=== PATIENT | female | born 1935 | race Caucasian/White ===

== ENCOUNTER 2022-07-23 16:12 | Inpatient (IN) | payer MEDICARE, OTHER ==
[~2022-07-23] VITALS: Ht 167.6 cm; Wt 61.2 kg
--- NOTE | 2022-07-23 16:35 | NUR ---
BETO HOOK "From [facility] COVID positive, Hypoxemia/weak. PLACED ON BED, AWAKE-ALERT, TACHYPNEIC RR- 30, SATURATING AT 85% ON 15LIT O2 NRM. IRRIGATION SERVICE TECHNICIAN AT BEDSIDE SUCTION SECRETION DONE SATURATING AT 96% WITH 6LIT O2 VIA NC.
--- NOTE | 2022-07-23 16:45 | NUR ---
BLOOD DRAWN AND SENT TO LAB
[2022-07-23 17:00] LABS: BASOPHILS % (AUTO) 0.1 % (0.0-2.0); HEMATOCRIT 39 % (33-45); HEMOGLOBIN 12.5 g/dL (11.5-14.8); LYMPHOCYTES # (AUTO) 0.3 K/uL (0.8-4.8); LYMPHOCYTES % (AUTO) 1.9 % (20.0-44.0); MEAN CORPUSCULAR HGB CONC 33 g/dl (31.0-36.0); MEAN CORPUSCULAR VOLUME 89 fL (82-100); MONOCYTES # (AUTO) 1.6 K/uL (0.1-1.30); MONOCYTES % (AUTO) 10.8 % (2.0-12.0); NEUTROPHILS # (AUTO) 12.7 K/uL (1.8-8.9); NEUTROPHILS % (AUTO) 87.2 % (43.0-81.0); PLATELET COUNT (AUTO) 181 K/uL (150-450); RED BLOOD CELL COUNT(AUTO) 4.35 MIL/uL (4.0-5.2); WHITE BLOOD COUNT (AUTO) 14.5 K/uL (4.3-11.0)
[2022-07-23] MEDS ORDERED: IV NS 0.9% 1,000 ML BAG IV ONE (17:00)
[2022-07-23] MEDS ORDERED: ACETAMINOPHEN 650 MG/SUPP.RECT RC ONE ×2 (17:00→17:19)
[2022-07-23 17:17] LABS: CALCIUM, SERUM 6.8 mg/dL (8.5-10.1); CARBON DIOXIDE 27 mmol/L (21-32); CHLORIDE 108 mmol/L (98-107); CREATININE 0.8 mg/dL (0.6-1.3); GLUCOSE 188 mg/dL (74-106); POTASSIUM 3.5 mmol/L (3.5-5.1); SODIUM SERUM 143 mmol/L (136-145); UREA NITROGEN, BLOOD 14 mg/dL (7-18)
[2022-07-23 17:23] LABS: ALANINE AMINOTRANSFERASE 13 U/L (12-78); ALBUMIN 2.5 g/dL (3.4-5.0); ALKALINE PHOSPHATASE 59 U/L (46-116); ASPARTATE AMINOTRANSFERASE 11 U/L (15-37); BILIRUBIN,DIRECT 0.2 mg/dL (0.0-0.2); BILIRUBIN,TOTAL 0.3 mg/dL (0.2-1.0); TOTAL PROTEIN, SERUM 6.4 g/dL (6.4-8.2)
[2022-07-23] MEDS ORDERED: DOCU250C14 PO (17:47)
[2022-07-23] MEDS ORDERED: NA P133E RC (17:47)
[2022-07-23] MEDS ORDERED: CALC1TAB30 PO (17:47)
[2022-07-23] MEDS ORDERED: MAGN400O6 PO (17:47)
[2022-07-23] MEDS ORDERED: ALEN70TA3 PO (17:47)
[2022-07-23] MEDS ORDERED: MULT-447 PO (17:47)
[2022-07-23] MEDS ORDERED: [UNRECOGNIZED DRUG - CODE] EACH EAR (17:47)
[2022-07-23] MEDS ORDERED: POLY15DR40 EACHEYE (17:47)
[2022-07-23] MEDS ORDERED: ASPI-1169 PO (17:47)
[2022-07-23] MEDS ORDERED: ALBU0.633 IH (17:47)
[2022-07-23] MEDS ORDERED: DONE10TA44 PO (17:47)
[2022-07-23] MEDS ORDERED: ASCO-352 PO (17:48)
[2022-07-23] MEDS ORDERED: ZINC1CAP3 PO (17:48)
[2022-07-23] MEDS ORDERED: ACET-868 PO ×2 (17:48)
[2022-07-23] MEDS ORDERED: AMIN30LI2 PO (17:48)
[2022-07-23] MEDS ORDERED: CYAN100096 PO (17:48)
[2022-07-23] MEDS ORDERED: PRAV40TA3 PO (17:48)
[2022-07-23] MEDS ORDERED: ACET-2605 PO (17:48)
[2022-07-23] MEDS ORDERED: LEVO50TA8 PO (17:48)
--- NOTE | 2022-07-23 18:14 | NUR ---
SWAB FOR COVID19 SENT TO LAB
--- NOTE | 2022-07-23 18:20 | NUR ---
URINE SAMPLE SENT TO LAB
[2022-07-23 19:05] LABS: BILIRUBIN,URINE NEGATIVE (NEGATIVE); COLOR,URINE YELLOW (YELLOW); LEUKOCYTE ESTERASE ,URINE NEGATIVE (NEGATIVE); NITRITE, URINE POSITIVE (NEGATIVE); PH,URINE 5.5 (5.0-8.0); PROTEIN,URINE 2+ mg/dl (NEGATIVE); UGLUCOSE 1+ mg/dL (NEGATIVE)
[2022-07-23 19:55] LABS: BACTERIA,URINE 3+ /HPF (None Seen); RBC,URINE 51-80 /HPF (0-2); SQUAMOUS EPITHELIAL CELL,UR Moderate /HPF (None Seen)
[2022-07-23 20:00] VITALS: BP 126/64
[2022-07-23] MEDS ORDERED: ONDANSETRON HCL/PF 4 MG/2 ML VIAL IVP PRN (20:30)
[2022-07-23] MEDS ORDERED: ACETAMINOPHEN 325 MG TABLET PO PRN (20:30)
[2022-07-23] MEDS ORDERED: MAGNESIUM HYDROXIDE 30 ML UDC PO PRN (20:30)
[2022-07-23] MEDS ORDERED: CEFTRIAXONE 1GM BAG (ER ONLY) 1 GM/50 ML PIGGYBACK IV ONE (20:30)
[2022-07-23] MEDS ORDERED: Z GUARD REMEDY 4 OZ OINT TP PRN (20:30)
[2022-07-23] MEDS ORDERED: MORPHINE SULFATE INJ 2 MG/ML DISP.SYRIN IV PRN (20:30)
[2022-07-23] MEDS ORDERED: ALBUTEROL FS 2.5 MG/0.5 ML VIAL.NEB NEB PRN (20:30)
[2022-07-23] MEDS ORDERED: DEXAMETHASONE SOD PHOSPHATE 10 MG/ML VIAL IV ONE (20:30)
--- NOTE | 2022-07-23 20:38 | NUR ---
REPORT GIVEN TO PRICESS RN ROOM 104 FOR PETER
[2022-07-23] MEDS ORDERED: CEFEPIME 2 GM in IV D5W 100 ML IV ONE (21:00)
[2022-07-23] MEDS: POLYVINYL ALCOHOL 15 ML BOTTLE EACHEYE SCH (21:00)
--- NOTE | 2022-07-23 21:43 | NUR ---
RN INITIAL NOTE PT ARRIVED TO UNIT VIA GURNEY. PT IS A&O X0, NON-VERBAL; UNABLE TO OBTAIN PERTINENT HISTORY. PT IS ON SIMPLE FACE MASK AT 10L WITH CURRENT O2SAT OF 100%; NOTED TO HAVE PRODUCTIVE COUGH, SOB, AND IS NOTED TO BE TACHYPNEIC WITH RESPIRATIONS OF 36; SECRETION IS BROWNISH WHITE IN COLOR WITH THIN CONSISTENCY; PT SUCTIONED APPROPRIATELY. PT ATTACHED TO EXTERNAL MONITOR, SR WITH HR OF 85. LFA 20G INTACT AND PATENT, FLUSHES EASILY WITH NO RESISTANCE. PT IS VACCINATED AGAINST COVID WITH MODERNA X3 DOSES AND THE FLU VACCINE, RECEIVED MAY 2022. BED IN LOWEST POSITION, CALL LIGHT WITHIN REACH, SIDE RAILS UP X3. WILL INITIATE PLAN OF CARE.
[2022-07-23] MEDS: ATORVASTATIN 10 MG TABLET PO SCH (22:00)
--- NOTE | 2022-07-23 22:58 | NUR ---
RN NOTE CRITICAL CAME FROM LAB, TROPONIN 257. NOTIFIED RUSLAN; ORDER PLACED FOR ECHOCARDIOGRAM.
[2022-07-23] MEDS: IV NS 0.9% 1,000 ML IV SCH (22:59)
[2022-07-23] MEDS: HEPARIN SODIUM, PORCINE 5000 UNITS/1 ML VIAL SQ SCH (23:03)
[2022-07-23] MEDS ORDERED: CEFEPIME 1 GM VIAL ONE (23:12)
--- NOTE | 2022-07-23 23:39 | NUR ---
RN NOTE POLYVINYL ALCOHOL SCHEDULED FOR 2100 NOT ADMINISTERED MED IS NOT AVAILABLE. WILL FOLLOW UP WITH PHARMACY IN AM.
[2022-07-24] VITALS: BP 157/85
[2022-07-24] MEDS: IPRATROPIUM/ALBUTEROL INHALER IH SCH ×2 (01:30→22:08)
[2022-07-24 04:00] VITALS: BP 130/88
[2022-07-24 05:51] LABS: ABG BASE EXCESS 1.2 mmol/L; ABG OXYGEN SATURATION 94.9 % (92.0-98.5); ABG PCO2 42.5 mmHg (35.0-45.0); ABG PH 7.406 (7.350-7.450); ABG PO2 75.6 mmHg (75.0-100.0); AaDO2 363.3 mmHg; COHb 0.6 % (0.5-1.5); MetHb 0.1 % (0.0-1.5); O2Hb 94.2 % (94.0-97.0); SITE, ABG Right Radial; VENT MODE, BG 12L SMIPLE MASK
--- NOTE | 2022-07-24 06:41 | NUR ---
HEAD OPERATOR SULFIDE CLOSING NOTE PT REMAINS IN BED, AWAKE, A&O X0, NON-VERBAL; NO CHANGES TO NEURO STATUS. PT REMAINS ON SIMPLE FACE MASK AT 10L WITH O2SAT RANGING FROM 98%-100%; CONTINUES TO HAVE PRODUCTIVE COUGH, SOB, AND TACHYPNEIC; AND AUDIBLE CRACKLES. ATTACHED TO EXTERNAL MONITOR, SR WITH HR RANGING FROM 82- 86. LFA 20G INTACT AND PATENT, FLUSHES EASILY WITH NO RESISTANCE; NS INFUSING AT 75 ML/HR. BED IN LOWEST POSITION, CALL LIGHT WITHIN REACH, SIDE RAILS UP X3. ALL DUE MEDS ADMINISTERED DURING THE NIGHT. WILL ENDORSE TO DAYSHIFT NURSE TO CONTINUE CARE.
[2022-07-24 07:16] LABS: BASOPHILS % (AUTO) 0.1 % (0.0-2.0); HEMATOCRIT 39 % (33-45); HEMOGLOBIN 12.9 g/dL (11.5-14.8); LYMPHOCYTES # (AUTO) 0.7 K/uL (0.8-4.8); LYMPHOCYTES % (AUTO) 6.7 % (20.0-44.0); MEAN CORPUSCULAR HGB CONC 33 g/dl (31.0-36.0); MEAN CORPUSCULAR VOLUME 89 fL (82-100); MONOCYTES # (AUTO) 1.2 K/uL (0.1-1.30); MONOCYTES % (AUTO) 11.4 % (2.0-12.0); NEUTROPHILS # (AUTO) 8.8 K/uL (1.8-8.9); NEUTROPHILS % (AUTO) 81.8 % (43.0-81.0); PLATELET COUNT (AUTO) 187 K/uL (150-450); RED BLOOD CELL COUNT(AUTO) 4.42 MIL/uL (4.0-5.2); WHITE BLOOD COUNT (AUTO) 10.7 K/uL (4.3-11.0)
[2022-07-24] MEDS: LEVOTHYROXINE SODIUM 50 MCG TABLET PO SCH (07:20)
--- NOTE | 2022-07-24 07:24 | NUR ---
RN OPEN NOTE PATIENT IS IN BED WITH SIMPLE MASK 10 L OF POXYGEN , SAT 98 % , PATIENT IS CONFUSED AND NON VERBAL , ON TELE MONITORING SR 87. PATIENT IS BED BOUND , HAS ULCER ON RIGHT MEDIAL ANKLE AND RIGHT CHAN SKIN TEAR , WOUND CONSULT PENDING .PATIENT HAS BILATERAL HANDS SOFT RESTRAINED DUE TO WAS TRYING TO REMOVE IV LINE , PATIENT IS NPO DUE TO HIGH RISK OF ASPIRATION , DIETARY CONSULT IS PENDING .PATIENT HAS IV ACCESS OF LFA 20 G WITH NS RUNNING AT 75 ML/HR . WILL MATTY NUE TO MONITOR AND FALLOW POC
[2022-07-24 07:27] LABS: CALCIUM, SERUM 8.1 mg/dL (8.5-10.1); CREATININE 0.8 mg/dL (0.6-1.3); POTASSIUM 3.6 mmol/L (3.5-5.1)
[2022-07-24 07:33] LABS: ALBUMIN 2.8 g/dL (3.4-5.0); BILIRUBIN,TOTAL 0.5 mg/dL (0.2-1.0); MAGNESIUM 2.1 mg/dL (1.8-2.4); PHOSPHORUS 2.3 mg/dL (2.5-4.9); TOTAL PROTEIN, SERUM 7.1 g/dL (6.4-8.2)
[2022-07-24 08:00] VITALS: BP 131/82
--- NOTE | 2022-07-24 08:20 | NUR ---
WOUND CARE CONSULT: REVIEWED CHART, NURSING DOCUMENTATION AND PHOTO WHICH INDICATES RT ANKLE ULCER, PRESENT ON ADMISSION. DR LOPEZ NOTIFIED OF DPM CONSULT. DISCUSSED SKIN PROTECTION WITH NURSING STAFF. MD IN AGREEMENT WITH PLAN OF CARE.
[2022-07-24] MEDS: DEXAMETHASONE SOD PHOSPHATE 4 MG/ML VIAL IV SCH (08:34)
[2022-07-24] MEDS: HEPARIN SODIUM, PORCINE 5000 UNITS/1 ML VIAL SQ SCH ×2 (08:39→22:14)
[2022-07-24] MEDS: ASPIRIN 81 MG TAB.CHEW PO SCH (08:56)
[2022-07-24] MEDS: CALCIUM CARB 250MG /VITAMIN D 1 UDTAB PO SCH (08:56)
[2022-07-24] MEDS: PROSOURCE / PROSTAT (PYXIS) 30 ML UDC PO SCH (08:57)
[2022-07-24] MEDS: CYANOCOBALAMIN 500 MCG TABLET PO SCH (08:57)
[2022-07-24] MEDS: ZINC SULFATE 220 MG CAPSULE PO SCH (08:57)
[2022-07-24] MEDS: ASCORBIC ACID 500 MG TABLET PO SCH (08:57)
[2022-07-24] MEDS: MULTIVITAMINS,THERAGRAN 1 UDTAB TABLET PO SCH (08:57)
[2022-07-24] MEDS ORDERED: [UNRECOGNIZED DRUG - MIXTURE] EACH EAR SCH (09:00)
[2022-07-24] MEDS ORDERED: OLANZAPINE 10 MG VIAL IM ONE (09:00)
[2022-07-24] MEDS ORDERED: DEXAMETHASONE SOD PHOSPHATE 6 MG in IV D5W 50 ML IV SCH (09:00)
[2022-07-24] MEDS ORDERED: ACETAMINOPHEN SUP SA PATIENTS 650 MG SUPP RC PRN (10:00)
[2022-07-24] MEDS: IV NS 0.9% 1,000 ML IV SCH (10:21)
[2022-07-24] MEDS: POLYVINYL ALCOHOL 15 ML BOTTLE EACHEYE SCH ×4 (10:22→21:00)
[2022-07-24] MEDS ORDERED: NEUTRA PHOS 1 POWD.PACKET NG ONE (12:00)
[2022-07-24 12:16] VITALS: BP 119/60
[2022-07-24] MEDS ORDERED: Sodium Phosphate 15 MMOL in IV NS 0.9% 245 ML IV SCH (13:00)
[2022-07-24 15:39] LABS: ABG OXYGEN SATURATION 94.9 % (92.0-98.5); ABG PCO2 39.4 mmHg (35.0-45.0); ABG PH 7.441 (7.350-7.450); ABG PO2 73.6 mmHg (75.0-100.0); AaDO2 238.6 mmHg; COHb 0.2 % (0.5-1.5); MetHb 0.3 % (0.0-1.5); O2Hb 94.4 % (94.0-97.0); SITE, ABG Right Radial; VENT MODE, BG 10 L SM
[2022-07-24] MEDS ORDERED: REMDESIVIR (CHARGED) 200 MG, *LOADING DOSE 1 EA in IV NS 0.9% 210 ML IV ONE (16:00)
[2022-07-24 16:14] VITALS: BP 118/85
[2022-07-24] MEDS: DONEPEZIL 5 MG TABLET PO SCH (17:13)
[2022-07-24] MEDS: DOCUSATE SODIUM 250 MG CAPSULE PO SCH (17:13)
[2022-07-24] MEDS ORDERED: IV D5/0.45 NACL 1,000 ML IV ONE (18:00)
--- NOTE | 2022-07-24 18:30 | NUR ---
CLERK MANAGER CLOSING NOTE PT REMAINS IN BED, SLEEPING A&O X0, NON-VERBAL; NO CHANGES TO NEURO STATUS. PT REMAINS ON SIMPLE FACE MASK AT 10L WITH O2SAT RANGING FROM 98%-100%; CONTINUES TO HAVE PRODUCTIVE COUGH, SOB, AND TACHYPNEIC; AND AUDIBLE CRACKLES. ATTACHED TO EXTERNAL MONITOR, SR WITH HR RANGING FROM 82- 86. LFA 20G INTACT AND PATENT, FLUSHES EASILY WITH NO RESISTANCE; D5 1/2 NS INFUSING AT 75 ML/HR. BED IN LOWEST POSITION, CALL LIGHT WITHIN REACH, SIDE RAILS UP X3. NO ORAL MED WAS ADMINISTERD DUE TO PATIENT IS UNABLE TO SWALLOW , DOCTOR AMBER AND DR LOTT NOTIFIED . WILL ENDORSE TO CNC OPERATOR PROGRAMMER NURSE TO CONTINUE TO FALLOW POC
[2022-07-24 20:00] VITALS: BP 109/57
[2022-07-24] MEDS ORDERED: CEFEPIME 2 GM in IV D5W 100 ML IV SCH (20:00)
--- NOTE | 2022-07-24 21:01 | NUR ---
OIL FIELD PUMPER OPENING NOTE PT RECEIVED IN BED, A&O X0, NON-VERBAL, OPENS EYES. PT ON SIMPLE FACE MASK AT 10L WITH CURRENT O2SAT OF 97%; NOTED TO HAVE PRODUCTIVE COUGH; NO OTHER S/S OF RESP DISTRESS, NON-LABORED AND EQUAL BREATHING. PT ATTACHED TO EXTERNAL MONITOR, SB WITH CURRENT HR OF 55. LFA 20G INTACT AND PATENT, FLUSHES EASILY WITH NO RESISTANCE; D51/2NS INFUSING AT 75 ML/HR. PT NOTED TO HAVE BILATERAL SOFT WRIST RESTRAINTS; NO SIGNS OF IMPAIRED SKIN OR CIRCULATION; WILL PROVIDE PT WITH RELEASE OF RESTRAINTS, HYGIENE. BED IN LOWEST POSITION, CALL LIGHT WITHIN REACH, SIDE RAILS UP X3. WILL CONTINUE TO MONITOR THROUGHOUT THE NIGHT.
--- NOTE | 2022-07-24 21:08 | NUR ---
RN NOTE CRITICAL CALLED FROM LAB, TROPONIN 224, NOTED TO BE TRENDING DOWN FROM 257 DRAWN ON 07/23
[2022-07-24] MEDS: ATORVASTATIN 10 MG TABLET PO SCH (22:00)
[2022-07-24] MEDS: CEFEPIME 2 GM in IV D5W 100 ML IV SCH (22:07)
--- NOTE | 2022-07-24 22:32 | NUR ---
RN NOTE ATORVASTATIN 10 MG SCHEDULED FOR 2200 NON-ADMINISTERED D/T NPO STATUS SECONDARY TO AMS.
[2022-07-25] VITALS: BP 137/90
[2022-07-25] MEDS: IPRATROPIUM/ALBUTEROL INHALER IH SCH ×2 (01:36→19:30)
[2022-07-25 04:00] VITALS: BP 111/59
--- NOTE | 2022-07-25 06:48 | NUR ---
PUMPER GAUGER CLOSING NOTE PT REMAINS IN BED, A&O X0, NON-VERBAL, OPENS EYES. CONTINUES TO BE ON SIMPLE FACE MASK AT 10L WITH O2SAT RANGING FROM 97%-98% THROUGHOUT THE NIGHT; PRODUCTIVE COUGH WITH MODERATE SECRETIONS, PT SUCTIONED APPROPRIATELY; NO OTHER S/S OF RESP DISTRESS, NON-LABORED AND EQUAL BREATHING. PT ATTACHED TO EXTERNAL MONITOR, SB-SR WITH HR RANGING FROM 55-67. LFA 20G INTACT AND PATENT, FLUSHES EASILY WITH NO RESISTANCE; D51/2NS INFUSING AT 75 ML/HR. BILATERAL SOFT WRIST RESTRAINTS REMAIN IN PLACE WITH NO SIGNS OF IMPAIRED SKIN OR CIRCULATION; PROVIDED PT WITH RELEASE OF RESTRAINTS, HYGIENE. ALL DUE MEDS ADMINISTERED DURING THE NIGHT. BED IN LOWEST POSITION, CALL LIGHT WITHIN REACH, SIDE RAILS UP X3. WILL ENDORSE TO DAYSHIFT NURSE TO CONTINUE CARE.
[2022-07-25] MEDS: LEVOTHYROXINE SODIUM 50 MCG TABLET PO SCH (07:00)
[2022-07-25 07:04] LABS: HEMATOCRIT 38 % (33-45); HEMOGLOBIN 12.3 g/dL (11.5-14.8); LYMPHOCYTES # (AUTO) 0.7 K/uL (0.8-4.8); LYMPHOCYTES % (AUTO) 6.3 % (20.0-44.0); MEAN CORPUSCULAR HGB CONC 33 g/dl (31.0-36.0); MEAN CORPUSCULAR VOLUME 88 fL (82-100); MONOCYTES % (AUTO) 8.4 % (2.0-12.0); NEUTROPHILS # (AUTO) 9.9 K/uL (1.8-8.9); NEUTROPHILS % (AUTO) 85.3 % (43.0-81.0); PLATELET COUNT (AUTO) 188 K/uL (150-450); RED BLOOD CELL COUNT(AUTO) 4.27 MIL/uL (4.0-5.2); WHITE BLOOD COUNT (AUTO) 11.6 K/uL (4.3-11.0)
--- NOTE | 2022-07-25 07:05 | NUR ---
FLOOR SPACE ALLOCATOR OPENING NOTE: RECEIVED PT. IN BED, LETHARGIC, OPENS EYES TO TACTILE AND PAINFUL STIMULI, NON-VERBAL, NO S/S OF PAIN/DISCOMFORT NOTED. ON O2 VIA SIMPLE FACE MASK AT 10 L/MIN, SATURATING 98% AT THIS TIME. LENDING CONSULTANT READS NSR/SINUS KATLIN AT THIS TIME. ON DIAPER VOIDING YELLOW URINE. MULTIPLE SKIN ISSUES NOTED, WILL DO WOUND TREATMENT ORDERED. ON BILATERAL SOFT WRIST RESTRAINTS, PALPABLE PULSES NOTED AND < 3 SECS CAP REFILL NOTED ON ALL EXTREMITIES. PT. REMAINS NPO FOR RISK FOR ASPIRATION. IV ACCESS ON L FOREARM #20G, WITH D5 1/2 NS RUNNING AT 75 ML/HR. IV DRESSING C/D/I WITH NO S/S OF INFILTRATION NOTED. SAFETY MEASURES IN PLACE: BED IN LOWEST AND LOCKED POSITION, HOB ELEVATED AT 30 DEGREES, BED ALARM ON, CALL LIGHT WITHIN REACH. WILL TURN AND REPOSITION IN BED AT LEAST Q2H. WILL CONTINUE TO MONITOR FOR ANY CHANGES.
[2022-07-25 07:23] LABS: ALANINE AMINOTRANSFERASE 14 U/L (12-78); ALBUMIN 2.4 g/dL (3.4-5.0); ALKALINE PHOSPHATASE 53 U/L (46-116); BILIRUBIN,DIRECT 0.2 mg/dL (0.0-0.2); BILIRUBIN,TOTAL 0.3 mg/dL (0.2-1.0); CARBON DIOXIDE 30 mmol/L (21-32); CHLORIDE 110 mmol/L (98-107); CREATININE 0.8 mg/dL (0.6-1.3); GLUCOSE 122 mg/dL (74-106); PHOSPHORUS 2.2 mg/dL (2.5-4.9); POTASSIUM 3.8 mmol/L (3.5-5.1); SODIUM SERUM 144 mmol/L (136-145); TOTAL PROTEIN, SERUM 6.7 g/dL (6.4-8.2); UREA NITROGEN, BLOOD 22 mg/dL (7-18)
[2022-07-25 07:56] LABS: ASPARTATE AMINOTRANSFERASE 17 U/L (15-37)
[2022-07-25 08:00] VITALS: BP 122/63
[2022-07-25] MEDS: ZINC SULFATE 220 MG CAPSULE PO SCH (09:00)
[2022-07-25] MEDS: PROSOURCE / PROSTAT (PYXIS) 30 ML UDC PO SCH (09:00)
[2022-07-25] MEDS: CYANOCOBALAMIN 500 MCG TABLET PO SCH (09:00)
[2022-07-25] MEDS: CALCIUM CARB 250MG /VITAMIN D 1 UDTAB PO SCH (09:00)
[2022-07-25] MEDS: ASCORBIC ACID 500 MG TABLET PO SCH (09:00)
[2022-07-25] MEDS: MULTIVITAMINS,THERAGRAN 1 UDTAB TABLET PO SCH (09:00)
[2022-07-25] MEDS: ASPIRIN 81 MG TAB.CHEW PO SCH (09:00)
[2022-07-25] MEDS: DAKINS HALF STRENGTH (0.25%) 480 ML BOTTLE TOP SCH (09:47)
[2022-07-25] MEDS: DEXAMETHASONE SOD PHOSPHATE 4 MG/ML VIAL IV SCH (10:17)
[2022-07-25] MEDS: POLYVINYL ALCOHOL 15 ML BOTTLE EACHEYE SCH ×4 (10:17→21:00)
[2022-07-25] MEDS: CEFEPIME 2 GM in IV D5W 100 ML IV SCH ×2 (10:18→22:27)
[2022-07-25] MEDS: HEPARIN SODIUM, PORCINE 5000 UNITS/1 ML VIAL SQ SCH ×2 (10:24→22:32)
[2022-07-25] MEDS ORDERED: NEUTRA PHOS 1 POWD.PACKET PO ONE (11:00)
[2022-07-25] MEDS ORDERED: Sodium Phosphate 15 MMOL in IV NS 0.9% 245 ML IV SCH (15:00)
[2022-07-25] MEDS: REMDESIVIR (CHARGED) 100 MG in IV NS 0.9% 100 ML IV SCH (15:26)
[2022-07-25 16:00] VITALS: BP 121/64
[2022-07-25] MEDS: DOCUSATE SODIUM 250 MG CAPSULE PO SCH (18:00)
[2022-07-25] MEDS: DONEPEZIL 5 MG TABLET PO SCH (18:00)
[2022-07-25] MEDS ORDERED: JEVITY 1.2 CAL 1,000 ML BOTTLE GT PRN (19:00)
--- NOTE | 2022-07-25 19:05 | NUR ---
MS RN CLOSING NOTE: PT. REMAINS IN BED, LETHARGIC, OPENS EYES TO TACTILE AND PAINFUL STIMULI, NON-VERBAL, NO S/S OF PAIN/DISCOMFORT NOTED. ON O2 VIA SIMPLE FACE MASK AT 10 L/MIN, SATURATING 98% AT THIS TIME. ON DIAPER VOIDED 2X YELLOW URINE. WOUND TREATMENT LILY ORDERED. ON BILATERAL SOFT WRIST RESTRAINTS, PALPABLE PULSES NOTED AND < 3 SECS CAP REFILL NOTED ON ALL EXTREMITIES. NG TUBE INSERTED, CONFIRMED PLACEMENT WITH XRAY. IV ACCESS ON NARGIS MIDLINE #18G, WITH D5 1/2 NS RUNNING AT 75 ML/HR. IV DRESSING C/D/I WITH NO S/S OF INFILTRATION NOTED. SAFETY MEASURES IN PLACE: BED IN LOWEST AND LOCKED POSITION, HOB ELEVATED AT 30 DEGREES, BED ALARM ON, CALL LIGHT WITHIN REACH. WILL TURN AND REPOSITION IN BED AT LEAST Q2H. WILL CONTINUE TO MONITOR FOR ANY CHANGES. Addendum: 07/25/22 at 1942 by FRANCO WELDON RN PLS DISREGARD THIS NOTE.
--- NOTE | 2022-07-25 19:06 | NUR ---
CORRECT: MS RN CLOSING NOTE: PT. REMAINS IN BED, LETHARGIC, OPENS EYES TO TACTILE AND PAINFUL STIMULI, NON-VERBAL, NO S/S OF PAIN/DISCOMFORT NOTED. ON O2 VIA SIMPLE FACE MASK AT 10 L/MIN, SATURATING 98% AT THIS TIME. ON DIAPER VOIDED 2X YELLOW URINE THIS SHIFT. WOUND TREATMENT DONE ORDERED. ON BILATERAL SOFT WRIST RESTRAINTS, PALPABLE PULSES NOTED AND < 3 SECS CAP REFILL NOTED ON ALL EXTREMITIES. NG TUBE INSERTED, CONFIRMED PLACEMENT WITH XRAY. IV ACCESS ON NARGIS MIDLINE #18G, PATENT AND SALINE LOCKED. IV DRESSING C/D/I WITH NO S/S OF INFILTRATION NOTED. SAFETY MEASURES MAINTAINED: BED IN LOWEST AND LOCKED POSITION, HOB ELEVATED AT 30 DEGREES, BED ALARM ON, CALL LIGHT WITHIN REACH. TURNED AND REPOSITIONED PT. IN BED AT LEAST Q2H. ENDORSED CONTINUITY OF CARE TO CASINO BANKER RN.
[2022-07-25 20:00] VITALS: BP 105/44
[2022-07-25] MEDS: ATORVASTATIN 10 MG TABLET PO SCH (22:28)
--- NOTE | 2022-07-25 23:57 | NUR ---
MS RN OPENING NOTE PT RECEIVED IN BED, A&O X0, NON-VERBAL, OPENS EYES. PT ON SIMPLE FACE MASK AT 12L WITH CURRENT O2SAT OF 98%; NO S/S OF RESP DISTRESS, NON-LABORED AND EQUAL BREATHING, NO SOB; NOTED TO HAVE PRODUCTIVE COUGH. VSS, WILL CONTINUE TO MONITOR THROUGHOUT THE NIGHT NEEDED. NARGIS MIDLINE 18G INTACT AND PATENT, FLUSHES EASILY WITH NO RESISTANCE; NO MEDS/FLUIDS INFUSING THROUGH IT. PT NOTED TO HAVE BILATERAL SOFT WRIST RESTRAINTS; NO SIGNS OF IMPAIRED SKIN OR CIRCULATION; WILL PROVIDE PT WITH RELEASE OF RESTRAINTS, HYGIENE. NGT NOTED TO BE ON RIGHT NARE AT 65 CM; POSITIVE PLACEMENT CONFIRMED WITH AUSCULTATION AND CHEST X-RAY. JEVITY STARTED AT 20 ML/HR; WILL MONITOR FOR TOLERATION. BED IN LOWEST POSITION, CALL LIGHT WITHIN REACH, SIDE RAILS UP X3. WILL CONTINUE TO MONITOR THROUGHOUT THE NIGHT.
[2022-07-26] MEDS: IPRATROPIUM/ALBUTEROL INHALER IH SCH ×4 (01:30→21:26)
[2022-07-26 04:00] VITALS: BP 140/78
--- NOTE | 2022-07-26 06:10 | NUR ---
MS RN CLOSING NOTE PT REMAINS IN BED, A&O X0, NON-VERBAL, OPENS EYES; NO CHANGES TO NEURO STATUS. CONTINUES TO BE ON SIMPLE FACE MASK AT 12L WITH O2SAT STABLE AT 98%; NO S/S OF RESP DISTRESS, NON-LABORED AND EQUAL BREATHING, NO SOB; CONTINUES TO HAVE PRODUCTIVE COUGH; PT SUCTIONED APPROPRIATELY. VSS THROUGHOUT THE NIGHT WITH NO SIGNIFICANT CHANGES. NARGIS MIDLINE 18G INTACT AND PATENT, FLUSHES EASILY WITH NO RESISTANCE; NO MEDS/FLUIDS INFUSING THROUGH IT. BILATERAL SOFT WRIST RESTRAINTS REMAIN IN PLACE; NO SIGNS OF IMPAIRED SKIN OR CIRCULATION; PROVIDED PT WITH RELEASE OF RESTRAINTS, HYGIENE. NGT REMAINS IN PLACE ON RIGHT NARE AT 65 CM; POSITIVE PLACEMENT CONFIRMED WITH AUSCULTATION AND CHEST X-RAY. JEVITY INFUSING AT 20 ML/HR; PT TOLERATING GTF WELL. ALL DUE MEDS ADMINISTERED DURING THE NIGHT. BED IN LOWEST POSITION, CALL LIGHT WITHIN REACH, SIDE RAILS UP X3. WILL ENDORSE TO DAYSHIFT NURSE TO CONTINUE CARE.
[2022-07-26 07:17] LABS: BASOPHILS % (AUTO) 0.1 % (0.0-2.0); HEMATOCRIT 34 % (33-45); HEMOGLOBIN 11.3 g/dL (11.5-14.8); LYMPHOCYTES # (AUTO) 0.6 K/uL (0.8-4.8); LYMPHOCYTES % (AUTO) 7.3 % (20.0-44.0); MEAN CORPUSCULAR HGB CONC 33 g/dl (31.0-36.0); MEAN CORPUSCULAR VOLUME 88 fL (82-100); MONOCYTES # (AUTO) 0.6 K/uL (0.1-1.30); MONOCYTES % (AUTO) 7.1 % (2.0-12.0); NEUTROPHILS # (AUTO) 7.5 K/uL (1.8-8.9); NEUTROPHILS % (AUTO) 85.5 % (43.0-81.0); PLATELET COUNT (AUTO) 195 K/uL (150-450); RED BLOOD CELL COUNT(AUTO) 3.91 MIL/uL (4.0-5.2); WHITE BLOOD COUNT (AUTO) 8.8 K/uL (4.3-11.0)
--- NOTE | 2022-07-26 07:30 | NUR ---
RN OPENING NOTE PT REMAINS IN BED. PT A/0 X0.PT NONVERBAL, OPENS EYES. ON SIMPLE FACE MASK AT 12 L 02 SAT @99%. NO SIGNS OF PAIN OR DISCOMFORT AT THIS TIME. PT HAS NARGIS MIDLINE. PT HAS BILATERAL SOFT WRIST RESTRAINTS. NO SKIN CIRCULATION NOTED AT THIS TIME. ALL SAFETY PRECAUTIONS IN PLACE. CALL LIGHT WITHIN REACH. BED LOCKED AT LOWEST POSITION. SIDE RAILS UP X2.
[2022-07-26 07:43] LABS: ALANINE AMINOTRANSFERASE 14 U/L (12-78); ALBUMIN 2.2 g/dL (3.4-5.0); ALKALINE PHOSPHATASE 49 U/L (46-116); ASPARTATE AMINOTRANSFERASE 15 U/L (15-37); BILIRUBIN,DIRECT 0.2 mg/dL (0.0-0.2); BILIRUBIN,TOTAL 0.4 mg/dL (0.2-1.0); CALCIUM, SERUM 7.6 mg/dL (8.5-10.1); CARBON DIOXIDE 31 mmol/L (21-32); CHLORIDE 110 mmol/L (98-107); CREATININE 0.7 mg/dL (0.6-1.3); GLUCOSE 135 mg/dL (74-106); PHOSPHORUS 2.5 mg/dL (2.5-4.9); POTASSIUM 3.7 mmol/L (3.5-5.1); SODIUM SERUM 144 mmol/L (136-145); TOTAL PROTEIN, SERUM 6.2 g/dL (6.4-8.2); UREA NITROGEN, BLOOD 23 mg/dL (7-18)
[2022-07-26 08:00] VITALS: BP 126/76
[2022-07-26] MEDS: LEVOTHYROXINE SODIUM 50 MCG TABLET PO SCH (08:44)
[2022-07-26] MEDS: DEXAMETHASONE SOD PHOSPHATE 4 MG/ML VIAL IV SCH (08:44)
[2022-07-26] MEDS: MULTIVITAMINS,THERAGRAN 1 UDTAB TABLET PO SCH (08:45)
[2022-07-26] MEDS: CALCIUM CARB 250MG /VITAMIN D 1 UDTAB PO SCH (08:45)
[2022-07-26] MEDS: CYANOCOBALAMIN 500 MCG TABLET PO SCH (08:45)
[2022-07-26] MEDS: ASCORBIC ACID 500 MG TABLET PO SCH (08:45)
[2022-07-26] MEDS: ASPIRIN 81 MG TAB.CHEW PO SCH (08:45)
[2022-07-26] MEDS: ZINC SULFATE 220 MG CAPSULE PO SCH (08:45)
[2022-07-26] MEDS: HEPARIN SODIUM, PORCINE 5000 UNITS/1 ML VIAL SQ SCH ×2 (08:47→21:30)
[2022-07-26] MEDS: PROSOURCE / PROSTAT (PYXIS) 30 ML UDC PO SCH (09:00)
[2022-07-26] MEDS: CEFEPIME 2 GM in IV D5W 100 ML IV SCH ×2 (09:24→21:27)
[2022-07-26] MEDS: POLYVINYL ALCOHOL 15 ML BOTTLE EACHEYE SCH ×4 (10:54→22:02)
[2022-07-26] MEDS: DAKINS HALF STRENGTH (0.25%) 480 ML BOTTLE TOP SCH (11:36)
--- NOTE | 2022-07-26 13:00 | NUR ---
RN NOTE NARGIS MIDLINE NOT WORKING.NOTIFIED NURSING SEGMENTAL WALL INSTALLER. MIDLINE NURSE NOTIFIED. PLACED MIDLINE ON MICHELLE . INTACT,PATENT AND FLUSHING WELL.
[2022-07-26] MEDS: QUETIAPINE FUMARATE 25 MG TABLET NG SCH ×2 (13:59→17:22)
[2022-07-26 16:00] VITALS: BP 130/66
[2022-07-26] MEDS: REMDESIVIR (CHARGED) 100 MG in IV NS 0.9% 100 ML IV SCH (16:17)
[2022-07-26] MEDS: DOCUSATE SODIUM 250 MG CAPSULE PO SCH (17:22)
[2022-07-26] MEDS: DONEPEZIL 5 MG TABLET PO SCH (17:25)
--- NOTE | 2022-07-26 18:00 | NUR ---
RN NOTE PT PULLED OUT R NARE NG TUBE. PLACE A NEW R NARE NG TUBE. STAT CHEST XRAY ORDERED.
--- NOTE | 2022-07-26 19:15 | NUR ---
[facility] OPEN NOTE: AWAKE. NON-VERBAL. DOES NOT RESPOND TO VERBAL STIMULI. ON 12 LITERS SIMPLE MASK. SATING AT 94 %. NGT IN PLACE TO RIGHT NARE. BILATERAL SOFT WRIST RESTRAINTS ON. NO SKIN BREAKDOWN, CIRCULATION WITHIN NORMAL. BILATERAL HALF SIDE RAILS UPX2. HOB ELEVATED SEMI FOWLERS POSITION. BED IS LOCKED, IN LOW POSITION, EXIT ALARM ON. CALL LIGHT IN REACH. NO S/S OF PAIN OR DISCOMFORT.
[2022-07-26 20:00] VITALS: BP 152/68
--- NOTE | 2022-07-26 20:07 | NUR ---
RN CLOSING NOTE PT REMAINS IN BED. PT A/0 X0.PT NONVERBAL, OPENS EYES. ON SIMPLE FACE MASK AT 12 L 02 SAT @99%. NO SIGNS OF PAIN OR DISCOMFORT AT THIS TIME. PT HAS RLUA MIDLINE.INTACT, PATENT AND FLUSHING WELL. PT HAS BILATERAL SOFT WRIST RESTRAINTS. NO SKIN CIRCULATION NOTED AT THIS TIME. ALL SAFETY PRECAUTIONS IN PLACE. CALL LIGHT WITHIN REACH. BED LOCKED AT LOWEST POSITION. SIDE RAILS UP X2. ENDORSED TO COMPUTER DESIGNER RN FOR CONTINUITY OF CARE
--- NOTE | 2022-07-26 21:18 | NUR ---
DR. AYAZ CRAWFORD INFORMED OF PRINTED CXR RESULTS FOR NGT PLACEMENT WITH ORDER TO ADVANCE NG 5CM AND OK FOR NG TO USE.
[2022-07-26] MEDS: ATORVASTATIN 10 MG TABLET PO SCH (21:27)
[2022-07-27] VITALS: BP 148/68
[2022-07-27] MEDS: IPRATROPIUM/ALBUTEROL INHALER IH SCH ×4 (01:48→18:59)
[2022-07-27 04:00] VITALS: BP 138/64
[2022-07-27 06:35] LABS: BASOPHILS % (AUTO) 0.1 % (0.0-2.0); HEMATOCRIT 36 % (33-45); HEMOGLOBIN 11.7 g/dL (11.5-14.8); LYMPHOCYTES # (AUTO) 1.3 K/uL (0.8-4.8); LYMPHOCYTES % (AUTO) 13.9 % (20.0-44.0); MEAN CORPUSCULAR HGB CONC 33 g/dl (31.0-36.0); MEAN CORPUSCULAR VOLUME 88 fL (82-100); MONOCYTES # (AUTO) 1.1 K/uL (0.1-1.30); MONOCYTES % (AUTO) 11.7 % (2.0-12.0); NEUTROPHILS # (AUTO) 7.2 K/uL (1.8-8.9); NEUTROPHILS % (AUTO) 74.3 % (43.0-81.0); PLATELET COUNT (AUTO) 211 K/uL (150-450); RED BLOOD CELL COUNT(AUTO) 4.06 MIL/uL (4.0-5.2); WHITE BLOOD COUNT (AUTO) 9.7 K/uL (4.3-11.0)
--- NOTE | 2022-07-27 06:58 | NUR ---
MED SURGE CLOSING RN NOTE: EYES OPEN. ON 02 12LPM SIMPLE MASK. SATING AT 96 %. RIGHT UPPER ARM MIDLINE INTACT. NO S/S OF COMPLICATIONS. NGT IN PLACE PATENT WITH FORMULA OR JEVITY 1.2 AT 60ML/HR. ASPIRATION PRECAUTIONS MAINTAINED. TOTAL CARE PROVIDED. BILATERAL SOFT WRIST RESTRAINTS ON, CIRCULATION WITHIN NORMAL. NO SKIN BREAKDOWN. CATHY. HALF SIDE RAILS UPX2. HOB ELEVATED SEMI-FOWLERS POSITION. BED IN LOW POSITION, LOCKED, EXIT ALARM ON. CALL LIGHT IN REACH.
[2022-07-27 07:19] LABS: ALBUMIN 2.5 g/dL (3.4-5.0); BILIRUBIN,DIRECT 0.2 mg/dL (0.0-0.2); BILIRUBIN,TOTAL 0.4 mg/dL (0.2-1.0); CALCIUM, SERUM 8.8 mg/dL (8.5-10.1); CREATININE 0.9 mg/dL (0.6-1.3); POTASSIUM 3.5 mmol/L (3.5-5.1); TOTAL PROTEIN, SERUM 6.5 g/dL (6.4-8.2)
[2022-07-27 08:00] VITALS: BP 150/66
[2022-07-27] MEDS: PROSOURCE / PROSTAT (PYXIS) 30 ML UDC PO SCH (08:07)
[2022-07-27] MEDS: CEFEPIME 2 GM in IV D5W 100 ML IV SCH ×2 (08:08→21:57)
[2022-07-27] MEDS: CYANOCOBALAMIN 500 MCG TABLET PO SCH (08:08)
[2022-07-27] MEDS: CALCIUM CARB 250MG /VITAMIN D 1 UDTAB PO SCH (08:08)
[2022-07-27] MEDS: QUETIAPINE FUMARATE 25 MG TABLET NG SCH ×2 (08:08→16:23)
[2022-07-27] MEDS: ZINC SULFATE 220 MG CAPSULE PO SCH (08:09)
[2022-07-27] MEDS: MULTIVITAMINS,THERAGRAN 1 UDTAB TABLET PO SCH (08:09)
[2022-07-27] MEDS: ASCORBIC ACID 500 MG TABLET PO SCH (08:09)
[2022-07-27] MEDS: ASPIRIN 81 MG TAB.CHEW PO SCH (08:10)
[2022-07-27] MEDS: HEPARIN SODIUM, PORCINE 5000 UNITS/1 ML VIAL SQ SCH ×2 (08:10→21:59)
[2022-07-27] MEDS: DEXAMETHASONE SOD PHOSPHATE 4 MG/ML VIAL IV SCH (08:10)
[2022-07-27] MEDS: LEVOTHYROXINE SODIUM 50 MCG TABLET PO SCH (08:11)
[2022-07-27] MEDS: DAKINS HALF STRENGTH (0.25%) 480 ML BOTTLE TOP SCH (08:12)
[2022-07-27] MEDS: POLYVINYL ALCOHOL 15 ML BOTTLE EACHEYE SCH ×4 (08:12→22:16)
[2022-07-27] MEDS: JEVITY 1.2 CAL 1,000 ML BOTTLE NG PRN (15:28)
[2022-07-27 16:00] VITALS: BP 115/64
[2022-07-27] MEDS: REMDESIVIR (CHARGED) 100 MG in IV NS 0.9% 100 ML IV SCH (16:23)
[2022-07-27] MEDS: DOCUSATE SODIUM 250 MG CAPSULE PO SCH (18:59)
[2022-07-27] MEDS: DONEPEZIL 5 MG TABLET PO SCH (18:59)
--- NOTE | 2022-07-27 19:15 | NUR ---
RN NOTE PT IN BED, CONFUSED, IN NO ACUTE DISTRESS, SATURATION AT 99% ON 10L VIA SIMPLE MASK, HR IS 63. MICHELLE MIDLINE PATENT AND FLUSHING WELL, SALINE LOCKED. B SOFT WRIST RESTRAINTS IN PLACE, SKIN AND CIRCULATION ARE WNL. NG TUBE AT R NARE IN PLACE, POSITIVE PLACEMENT NOTED, NO RESIDUAL WITH JEVITY AT 65 ML/HR. SAFETY MEASURES IN PLACE, BED IS LOCKED AND AT LOWEST POSITION, HOB ELEVATED, CALL LIGHT WITHIN REACH OF PATIENT. WILL CONT TO MONITOR AND REASSESS.
--- NOTE | 2022-07-27 20:28 | NUR ---
RN CLOSING NOTE BED IN BED A/OX 1. BREATHING ON 10 LPM SIMPLE MASK. SATING AT 100%. RIGHT UPPER ARM MIDLINE INTACT. NO S/S OF COMPLICATIONS. NGT IN PLACE PATENT WITH FORMULA OR JEVITY 1.2 AT 65ML/HR. ASPIRATION PRECAUTIONS MAINTAINED. TOTAL CARE PROVIDED. BILATERAL SOFT WRIST RESTRAINTS ON, CIRCULATION WITHIN NORMAL. NO SKIN BREAKDOWN. CATHY. HALF SIDE RAILS UPX2. HOB ELEVATED SEMI-FOWLERS POSITION. BED IN LOW POSITION, LOCKED, EXIT ALARM ON. CALL LIGHT IN REACH. WILL ENDORSE CONTINUITY OF CARE TO MEDICAL PARASITOLOGIST
[2022-07-27] MEDS: ATORVASTATIN 10 MG TABLET PO SCH (21:57)
[2022-07-28] MEDS: IPRATROPIUM/ALBUTEROL INHALER IH SCH ×4 (01:44→18:24)
[2022-07-28 04:00] VITALS: BP 156/68
[2022-07-28 05:58] LABS: BASOPHILS % (AUTO) 0.2 % (0.0-2.0); EOSINOPHILS % (AUTO) 0.9 % (0.0-6.0); HEMATOCRIT 39 % (33-45); HEMOGLOBIN 12.8 g/dL (11.5-14.8); LYMPHOCYTES # (AUTO) 1.7 K/uL (0.8-4.8); LYMPHOCYTES % (AUTO) 17.2 % (20.0-44.0); MEAN CORPUSCULAR HGB CONC 33 g/dl (31.0-36.0); MEAN CORPUSCULAR VOLUME 88 fL (82-100); MONOCYTES # (AUTO) 1.2 K/uL (0.1-1.30); MONOCYTES % (AUTO) 12.4 % (2.0-12.0); NEUTROPHILS # (AUTO) 6.8 K/uL (1.8-8.9); NEUTROPHILS % (AUTO) 69.3 % (43.0-81.0); PLATELET COUNT (AUTO) 201 K/uL (150-450); RED BLOOD CELL COUNT(AUTO) 4.44 MIL/uL (4.0-5.2); WHITE BLOOD COUNT (AUTO) 9.8 K/uL (4.3-11.0)
[2022-07-28] MEDS: LEVOTHYROXINE SODIUM 50 MCG TABLET PO SCH (06:02)
[2022-07-28 06:36] LABS: ALBUMIN 2.5 g/dL (3.4-5.0); BILIRUBIN,DIRECT 0.2 mg/dL (0.0-0.2); BILIRUBIN,TOTAL 0.4 mg/dL (0.2-1.0); CALCIUM, SERUM 8.8 mg/dL (8.5-10.1); CREATININE 0.7 mg/dL (0.6-1.3); TOTAL PROTEIN, SERUM 6.7 g/dL (6.4-8.2)
[2022-07-28 08:00] VITALS: BP 143/72
[2022-07-28] MEDS: DAKINS HALF STRENGTH (0.25%) 480 ML BOTTLE TOP SCH (09:00)
[2022-07-28] MEDS: POLYVINYL ALCOHOL 15 ML BOTTLE EACHEYE SCH ×4 (09:00→21:20)
[2022-07-28] MEDS: JEVITY 1.2 CAL 1,000 ML BOTTLE NG PRN (11:07)
--- NOTE | 2022-07-28 12:24 | NUR ---
RN NOTE PER DR SAENZ TITRATE PATIENT TO 6L NASAL CANNULA, KEEP IF 02 SAT IS 90%.
[2022-07-28] MEDS: ASPIRIN 81 MG TAB.CHEW PO SCH (12:57)
[2022-07-28] MEDS: CEFEPIME 2 GM in IV D5W 100 ML IV SCH ×2 (12:57→21:20)
[2022-07-28] MEDS: CYANOCOBALAMIN 500 MCG TABLET PO SCH (12:57)
[2022-07-28] MEDS: QUETIAPINE FUMARATE 25 MG TABLET NG SCH ×2 (12:58→18:27)
[2022-07-28] MEDS: ASCORBIC ACID 500 MG TABLET PO SCH (12:58)
[2022-07-28] MEDS: CALCIUM CARB 250MG /VITAMIN D 1 UDTAB PO SCH (12:58)
[2022-07-28] MEDS: MULTIVITAMINS,THERAGRAN 1 UDTAB TABLET PO SCH (12:58)
[2022-07-28] MEDS: ZINC SULFATE 220 MG CAPSULE PO SCH (12:58)
[2022-07-28] MEDS: DEXAMETHASONE SOD PHOSPHATE 4 MG/ML VIAL IV SCH (12:58)
[2022-07-28] MEDS: PROSOURCE / PROSTAT (PYXIS) 30 ML UDC PO SCH (13:01)
[2022-07-28] MEDS: HEPARIN SODIUM, PORCINE 5000 UNITS/1 ML VIAL SQ SCH ×2 (13:02→21:22)
[2022-07-28 16:00] VITALS: BP 152/88
[2022-07-28] MEDS: REMDESIVIR (CHARGED) 100 MG in IV NS 0.9% 100 ML IV SCH (16:05)
[2022-07-28] MEDS: DONEPEZIL 5 MG TABLET PO SCH (18:27)
[2022-07-28] MEDS: DOCUSATE SODIUM 250 MG CAPSULE PO SCH (18:27)
--- NOTE | 2022-07-28 19:00 | NUR ---
RN NOTE PT IN BED, CONFUSED, IN NO ACUTE DISTRESS, SATURATION AT 100% ON 10L VIA NC, HR IS 70. MICHELLE AND NARGIS MIDLINE PATENT AND FLUSHING WELL, SALINE LOCKED. B SOFT WRIST RESTRAINTS IN PLACE, SKIN AND CIRCULATION ARE WNL. NG TUBE AT R NARE IN PLACE, POSITIVE PLACEMENT NOTED, NO RESIDUAL WITH JEVITY AT 65 ML/HR. SAFETY MEASURES IN PLACE, BED IS LOCKED AND AT LOWEST POSITION, HOB ELEVATED, CALL LIGHT WITHIN REACH OF PATIENT. WILL CONT TO MONITOR AND REASSESS.
[2022-07-28 20:00] VITALS: BP 149/66
--- NOTE | 2022-07-28 20:13 | NUR ---
RN CLOSING NOTE BED IN BED A/OX 1. BREATHING ON 6LPM SATING AT 91%. RIGHT UPPER ARM MIDLINE INTACT. NO S/S OF COMPLICATIONS. NGT IN PLACE PATENT WITH FORMULA OR JEVITY 1.2 AT 65ML/HR. ASPIRATION PRECAUTIONS MAINTAINED. TOTAL CARE PROVIDED. BILATERAL SOFT WRIST RESTRAINTS ON, CIRCULATION WITHIN NORMAL. NO SKIN BREAKDOWN. CATHY. HALF SIDE RAILS UPX2. HOB ELEVATED SEMI-FOWLERS POSITION. BED IN LOW POSITION, LOCKED, EXIT ALARM ON. CALL LIGHT IN REACH. WILL ENDORSE CONTINUITY OF CARE TO INDUSTRIAL SAFETY ENGINEER
[2022-07-28] MEDS: ATORVASTATIN 10 MG TABLET PO SCH (21:20)
[2022-07-29] MEDS: IPRATROPIUM/ALBUTEROL INHALER IH SCH ×2 (01:42→19:30)
[2022-07-29] MEDS: JEVITY 1.2 CAL 1,000 ML BOTTLE NG PRN ×2 (03:27→18:56)
[2022-07-29 04:00] VITALS: BP 119/71
[2022-07-29] MEDS: LEVOTHYROXINE SODIUM 50 MCG TABLET PO SCH (06:36)
[2022-07-29 08:00] VITALS: BP 139/69
[2022-07-29] MEDS: ASPIRIN 81 MG TAB.CHEW PO SCH (09:11)
[2022-07-29] MEDS: MULTIVITAMINS,THERAGRAN 1 UDTAB TABLET PO SCH (09:11)
[2022-07-29] MEDS: CALCIUM CARB 250MG /VITAMIN D 1 UDTAB PO SCH (09:11)
[2022-07-29] MEDS: QUETIAPINE FUMARATE 25 MG TABLET NG SCH ×2 (09:12→17:23)
[2022-07-29] MEDS: CYANOCOBALAMIN 500 MCG TABLET PO SCH (09:12)
[2022-07-29] MEDS: ASCORBIC ACID 500 MG TABLET PO SCH (09:12)
[2022-07-29] MEDS: DEXAMETHASONE SOD PHOSPHATE 4 MG/ML VIAL IV SCH (09:12)
[2022-07-29] MEDS: ZINC SULFATE 220 MG CAPSULE PO SCH (09:12)
[2022-07-29] MEDS: PROSOURCE / PROSTAT (PYXIS) 30 ML UDC PO SCH (09:13)
[2022-07-29] MEDS: DAKINS HALF STRENGTH (0.25%) 480 ML BOTTLE TOP SCH (09:13)
[2022-07-29] MEDS: POLYVINYL ALCOHOL 15 ML BOTTLE EACHEYE SCH ×4 (09:13→21:17)
[2022-07-29] MEDS: CEFEPIME 2 GM in IV D5W 100 ML IV SCH ×2 (09:17→21:17)
[2022-07-29] MEDS: HEPARIN SODIUM, PORCINE 5000 UNITS/1 ML VIAL SQ SCH ×2 (09:18→21:18)
[2022-07-29 16:00] VITALS: BP 128/71
[2022-07-29] MEDS: DOCUSATE SODIUM 250 MG CAPSULE PO SCH (17:23)
[2022-07-29] MEDS: DONEPEZIL 5 MG TABLET PO SCH (17:23)
--- NOTE | 2022-07-29 19:00 | NUR ---
RN NOTE PT IN BED, AO X 1, SPEECH IS UNCLEAR, IN NO ACUTE DISTRESS, SATURATION AT 97% ON 2L VIA NC, HR IS 72. MICHELLE AND NARGIS MIDLINE PATENT AND FLUSHING WELL, SALINE LOCKED. B SOFT WRIST RESTRAINTS IN PLACE, SKIN AND CIRCULATION ARE WNL. NG TUBE AT R NARE IN PLACE, POSITIVE PLACEMENT NOTED BY AUSCULTATION AND ASPIRATION, NO RESIDUAL WITH JEVITY AT 65 ML/HR. SAFETY MEASURES IN PLACE, BED IS LOCKED AND AT LOWEST POSITION, HOB ELEVATED, CALL LIGHT WITHIN REACH OF PATIENT. WILL CONT TO MONITOR AND REASSESS.
--- NOTE | 2022-07-29 19:15 | NUR ---
RN CLOSING NOTE PATIENT IN BED A/OX 1. BREATHING ON 4LPM SATING AT 96%. RIGHT UPPER ARM MIDLINE INTACT AND FLUSHING WELL. NO S/S OF COMPLICATIONS. NGT IN PLACE PATENT WITH FORMULA OR JEVITY 1.2 AT 65ML/HR. ASPIRATION PRECAUTIONS MAINTAINED. TOTAL CARE PROVIDED. BILATERAL SOFT WRIST RESTRAINTS ON, CIRCULATION WITHIN NORMAL. NO SKIN BREAKDOWN. CATHY. HALF SIDE RAILS UPX2. HOB ELEVATED SEMI-FOWLERS POSITION. BED IN LOW POSITION, LOCKED, EXIT ALARM ON. CALL LIGHT IN REACH. WILL ENDORSE CONTINUITY OF CARE TO CHAINSAW MECHANIC NURSE.
[2022-07-29 20:00] VITALS: BP 108/74
[2022-07-29] MEDS: ATORVASTATIN 10 MG TABLET PO SCH (21:18)
[2022-07-30] MEDS: IPRATROPIUM/ALBUTEROL INHALER IH SCH ×4 (00:44→20:43)
[2022-07-30 04:00] VITALS: BP 130/74
[2022-07-30] MEDS: LEVOTHYROXINE SODIUM 50 MCG TABLET PO SCH (05:53)
--- NOTE | 2022-07-30 07:32 | NUR ---
BOX LIDDER NOTE PATIENT IN BED A/OX 1. BREATHING ON 2LPM SATING AT 91% AT THIS TIME RIGHT UPPER ARM MIDLINE INTACT AND FLUSHING WELL. . NGT IN PLACE PATENT WITH FORMULA OR JEVITY 1.2 AT 65ML/HR. ASPIRATION PRECAUTIONS MAINTAINED. TOTAL CARE PROVIDED. BILATERAL SOFT WRIST RESTRAINTS ON, CIRCULATION WITHIN NORMAL LIMITS SIDE RAILS UPX2. HOB ELEVATED SEMI-FOWLERS POSITION. BED IN LOW POSITION, LOCKED, BED ALARM ON. CALL LIGHT IN REACH. CALL LIGHT WITHIN REACH, WILL CONT TO MONITOR Addendum: 07/30/22 at 1539 by HAO SHAY RN [id number] on ng tube feeding as ordered,placement checked by auscultation of air,also no residual noted
[2022-07-30 08:00] VITALS: BP 147/89
[2022-07-30] MEDS: CALCIUM CARB 250MG /VITAMIN D 1 UDTAB PO SCH (09:08)
[2022-07-30] MEDS: ASCORBIC ACID 500 MG TABLET PO SCH (09:08)
[2022-07-30] MEDS: ASPIRIN 81 MG TAB.CHEW PO SCH (09:08)
[2022-07-30] MEDS: MULTIVITAMINS,THERAGRAN 1 UDTAB TABLET PO SCH (09:08)
[2022-07-30] MEDS: ZINC SULFATE 220 MG CAPSULE PO SCH (09:09)
[2022-07-30] MEDS: DEXAMETHASONE SOD PHOSPHATE 4 MG/ML VIAL IV SCH (09:09)
[2022-07-30] MEDS: CEFEPIME 2 GM in IV D5W 100 ML IV SCH ×2 (09:09→21:49)
[2022-07-30] MEDS: CYANOCOBALAMIN 500 MCG TABLET PO SCH (09:09)
[2022-07-30] MEDS: HEPARIN SODIUM, PORCINE 5000 UNITS/1 ML VIAL SQ SCH (09:10)
[2022-07-30] MEDS: DAKINS HALF STRENGTH (0.25%) 480 ML BOTTLE TOP SCH (09:11)
[2022-07-30] MEDS: POLYVINYL ALCOHOL 15 ML BOTTLE EACHEYE SCH ×4 (09:11→21:50)
[2022-07-30] MEDS: QUETIAPINE FUMARATE 25 MG TABLET NG SCH ×2 (09:15→16:53)
[2022-07-30] MEDS: PROSOURCE / PROSTAT (PYXIS) 30 ML UDC PO SCH (09:16)
--- NOTE | 2022-07-30 11:26 | NUR ---
ms rn note round made keep clean dry, turn reposition, will cont to monitor
[2022-07-30] MEDS: JEVITY 1.2 CAL 1,000 ML BOTTLE NG PRN (14:23)
--- NOTE | 2022-07-30 15:00 | NUR ---
ms rn note patient in bed ,cont on ng tube feeding as ordered ,keep hob elevated at all time,will cont to monitor closely
[2022-07-30 16:00] VITALS: BP 138/77
[2022-07-30] MEDS: DONEPEZIL 5 MG TABLET PO SCH (17:53)
[2022-07-30] MEDS: DOCUSATE SODIUM 250 MG CAPSULE PO SCH (17:53)
--- NOTE | 2022-07-30 18:19 | NUR ---
ms dodd note noted chest with congestion ,per dr madi sousa to do chest x ray ,lelo roth Addendum: 07/30/22 at 1828 by HAO SHAY RN chest xray done as ordered lelo roth
--- NOTE | 2022-07-30 18:39 | NUR ---
MS RN NOTE PATIENT IN BED, ON 2L NC NO SOB NOTED AT THIS TIME, WITH PURE WICK NOTED YELLOW COLOR URINE RT NARE NG TUBE IN PLACE ON NG TUBE FEEDING ORDERED,KEEP HOB ELEVATED AT ALL TIME, WITH SOFT RESTRAIN ORDERED, UNABLE TO REMOVE, AT RISK TO REMOVE ALL LINES , BED IN LOWEST AND LOCKED POSITION , SAFETY MEASURE IMPLEMENTED
[2022-07-30 20:00] VITALS: BP 141/82
--- NOTE | 2022-07-30 20:00 | NUR ---
MS RN NOTE RECEIVED PT IN BED SEMI BANG POSITION. A/O X 1 CONFUSED. NO SOB, NO DISTRESS OR DISCOMFORT NOTED. NO S/S OF PAIN NOTED. MICHELLE AND NARGIS MIDLINE INTACT AND PATENT. NO S/S OF INFILTRATION NOTED. RT NARE GT INTACT AND PATENT INFUSING JEVITY 65 ML/HR. 0 ML RESIDUAL NOTED. KEPT HER DRY AND CLEAN. ALL NEEDS ATTENDED. VSS. CONTINUE TO MONITOR HER.
[2022-07-30] MEDS: ATORVASTATIN 10 MG TABLET PO SCH (21:49)
[2022-07-31] MEDS: IPRATROPIUM/ALBUTEROL INHALER IH SCH ×4 (03:29→19:30)
[2022-07-31 04:00] VITALS: BP 138/68
[2022-07-31 06:38] LABS: BASOPHILS % (AUTO) 0.1 % (0.0-2.0); EOSINOPHILS % (AUTO) 1.7 % (0.0-6.0); HEMATOCRIT 45 % (33-45); HEMOGLOBIN 14.7 g/dL (11.5-14.8); LYMPHOCYTES # (AUTO) 2.5 K/uL (0.8-4.8); LYMPHOCYTES % (AUTO) 13.2 % (20.0-44.0); MEAN CORPUSCULAR HGB CONC 33 g/dl (31.0-36.0); MEAN CORPUSCULAR VOLUME 88 fL (82-100); MONOCYTES # (AUTO) 2.1 K/uL (0.1-1.30); MONOCYTES % (AUTO) 10.9 % (2.0-12.0); NEUTROPHILS # (AUTO) 14.2 K/uL (1.8-8.9); NEUTROPHILS % (AUTO) 74.1 % (43.0-81.0); PLATELET COUNT (AUTO) 268 K/uL (150-450); RED BLOOD CELL COUNT(AUTO) 5.14 MIL/uL (4.0-5.2); WHITE BLOOD COUNT (AUTO) 19.1 K/uL (4.3-11.0)
[2022-07-31 07:02] LABS: CALCIUM, SERUM 9.9 mg/dL (8.5-10.1); CREATININE 0.9 mg/dL (0.6-1.3); POTASSIUM 5.6 mmol/L (3.5-5.1)
[2022-07-31 08:00] VITALS: BP 111/78
--- NOTE | 2022-07-31 08:28 | NUR ---
RN NOTE PT RECEIVED IN BED, AWAKE AND RESPONSIVE. ON O2 VIA NC @2L. TOLERATING WELL. WITH R NARE NGT IN PLACE, WITH FEEDING JEVITY 1.2 @H5/HR RUNNING. ASPIRATION PREC MAINTAINED. WITH IV ACCESS ON NARGIS AND MICHELLE MIDLINE. SAFETY MAINTAINED. WILL CONTINUE TO MONITOR.
[2022-07-31 08:50] LABS: BAND % (MANUAL) 2 % (0.0-5.0); EOSINOPHILS % (MANUAL) 1 % (0-4); LYMPHOCYTES % (MANUAL) 20 % (16-48); MONOCYTES % (MANUAL) 7 % (0-11.0); NEUTROPHILS % (MANUAL) 70 (42-76)
[2022-07-31] MEDS: DEXAMETHASONE SOD PHOSPHATE 10 MG/ML VIAL IV SCH (09:27)
[2022-07-31] MEDS: ZINC SULFATE 220 MG CAPSULE PO SCH (09:27)
[2022-07-31] MEDS: ASPIRIN 81 MG TAB.CHEW PO SCH (09:27)
[2022-07-31] MEDS: ASCORBIC ACID 500 MG TABLET PO SCH (09:27)
[2022-07-31] MEDS: MULTIVITAMINS,THERAGRAN 1 UDTAB TABLET PO SCH (09:28)
[2022-07-31] MEDS: QUETIAPINE FUMARATE 25 MG TABLET NG SCH ×2 (09:28→17:00)
[2022-07-31] MEDS: CYANOCOBALAMIN 500 MCG TABLET PO SCH (09:29)
[2022-07-31] MEDS: LEVOTHYROXINE SODIUM 50 MCG TABLET PO SCH (09:31)
[2022-07-31] MEDS: PROSOURCE / PROSTAT (PYXIS) 30 ML UDC PO SCH (09:34)
[2022-07-31] MEDS: CEFEPIME 2 GM in IV D5W 100 ML IV SCH ×2 (09:35→21:19)
[2022-07-31] MEDS: CALCIUM CARB 250MG /VITAMIN D 1 UDTAB PO SCH (09:36)
[2022-07-31] MEDS: DAKINS HALF STRENGTH (0.25%) 480 ML BOTTLE TOP SCH (09:53)
[2022-07-31] MEDS: POLYVINYL ALCOHOL 15 ML BOTTLE EACHEYE SCH ×4 (09:53→21:00)
[2022-07-31 13:28] LABS: ABG OXYGEN SATURATION 94.3 % (92.0-98.5); ABG PCO2 50.8 mmHg (35.0-45.0); ABG PH 7.475 (7.350-7.450); AaDO2 153.8 mmHg; COHb 0.8 % (0.5-1.5); MetHb 0.2 % (0.0-1.5); O2Hb 93.4 % (94.0-97.0); SITE, ABG Right Radial
[2022-07-31 16:00] VITALS: BP 142/77
[2022-07-31] MEDS: DOCUSATE SODIUM 250 MG CAPSULE PO SCH (18:00)
[2022-07-31] MEDS: DONEPEZIL 5 MG TABLET PO SCH (18:00)
[2022-07-31] MEDS: acetaZOLAMIDE SODIUM 500 MG/VIAL VIAL IV SCH (18:55)
--- NOTE | 2022-07-31 19:56 | NUR ---
RN NOTE PT RESTING IN BED, AWAKE AND RESPONSIVE. ON O2 VIA NC @6L. TOLERATING WELL. NGT FEEDING JEVITY 1.2 HELD. NGT WAS PULLED OUT BY PT. PT SCHEDULED FOR PEG PLACEMENT @1900 BY [facility] BUT WAS NOT CLEARED BY [facility]. MADE AWARE, WITH ORDER TO HOLD PEG PLACEMENT FOR NOW. SPOKE WITH DAUGHTER AND OBTAINED CONSENT FOR PEG PLACEMENT. ASPIRATION PREC MAINTAINED. WITH IV ACCESS ON NARGIS AND MICHELLE MIDLINE. SAFETY MAINTAINED. WILL CONTINUE TO MONITOR.
[2022-07-31 20:00] VITALS: BP 120/95
[2022-07-31] MEDS: ATORVASTATIN 10 MG TABLET PO SCH (21:21)
[2022-07-31] MEDS: JEVITY 1.2 CAL 1,000 ML BOTTLE NG PRN (21:30)
--- NOTE | 2022-07-31 22:47 | NUR ---
MS RN OPENING NOTE PT RECEIVED IN BED, AWAKE, OPENS EYES, NON-VERBAL. PT ON 6L NC, WITH CURRENT O2SAT OF 92%; NOTED TO HAVE PRODUCTIVE COUGH; NO OTHER S/S OF RESP DISTRESS, NO SOB, NON-LABORED AND EQUAL BREATHING. VSS, WILL CONTINUE TO MONITOR THROUGHOUT THE NIGHT NEEDED. PUREWICK IN PLACE, DRAINING CLEAR AND YELLOW URINE. MICHELLE AND NARGIS MIDLINE INTACT AND PATENT, FLUSHES EASILY WITH NO RESISTANCE. PT NOTED TO HAVE BILATERAL SOFT WRIST RESTRAINTS; NO SIGNS OF IMPAIRED SKIN AND CIRCULATION; WILL PROVIDE PT WITH RELEASE OF RESTRAINTS, HYGIENE. NGT REINSERTED IN RIGHT NARE AT 65 CM; POSITIVE PLACEMENT CONFIRMED WITH AUSCULTATION AND CHEST XRAY; JEVITY RESTARTED AT 65 ML/HR. BED IN LOWEST POSITION, CALL LIGHT WITHIN REACH, SIDE RAILS UP X3. WILL CONTINUE TO MONITOR THROUGHOUT THE NIGHT.
[2022-08-01] MEDS: IPRATROPIUM/ALBUTEROL INHALER IH SCH ×4 (01:30→20:46)
[2022-08-01 04:00] VITALS: BP 139/100
--- NOTE | 2022-08-01 07:31 | NUR ---
MS RN CLOSING NOTE PT REMAINS IN BED, AWAKE, OPENS EYES, NON-VERBAL. CONTINUES TO BE ON 6L NC WITH O2SAT RANGING FROM 92%-98%; CONTINUES TO HAVE PRODUCTIVE COUGH; NO OTHER S/S OF RESP DISTRESS, NO SOB, NON-LABORED AND EQUAL BREATHING. VSS THROUGHOUT THE NIGHT WITH NO SIGNIFICANT CHANGES. PUREWICK IN PLACE, DRAINING CLEAR AND YELLOW URINE. MICHELLE AND NARGIS MIDLINE INTACT AND PATENT, FLUSHES EASILY WITH NO RESISTANCE; NO MEDS/FLUIDS INFUSING. BILATERAL SOFT WRIST RESTRAINTS REMAIN; NO SIGNS OF IMPAIRED SKIN AND CIRCULATION; PROVIDED PT WITH RELEASE OF RESTRAINTS, HYGIENE. NGT IN RIGHT NARE AT 65 CM; JEVITY RUNNING AT 65 ML/HR. ALL DUE MEDS ADMINISTERED DURING THE NIGHT. BED IN LOWEST POSITION, CALL LIGHT WITHIN REACH, SIDE RAILS UP X3. WILL ENDORSE TO DAYSHIFT NURSE TO CONTINUE CARE.
[2022-08-01 08:00] VITALS: BP 123/87
[2022-08-01 09:16] LABS: BASOPHILS % (AUTO) 0.1 % (0.0-2.0); EOSINOPHILS % (AUTO) 0.7 % (0.0-6.0); HEMATOCRIT 47 % (33-45); HEMOGLOBIN 14.9 g/dL (11.5-14.8); LYMPHOCYTES # (AUTO) 1.4 K/uL (0.8-4.8); LYMPHOCYTES % (AUTO) 5.7 % (20.0-44.0); MEAN CORPUSCULAR HGB CONC 32 g/dl (31.0-36.0); MEAN CORPUSCULAR VOLUME 89 fL (82-100); MONOCYTES # (AUTO) 2.1 K/uL (0.1-1.30); NEUTROPHILS # (AUTO) 20.2 K/uL (1.8-8.9); NEUTROPHILS % (AUTO) 84.5 % (43.0-81.0); PLATELET COUNT (AUTO) 239 K/uL (150-450); RED BLOOD CELL COUNT(AUTO) 5.26 MIL/uL (4.0-5.2); WHITE BLOOD COUNT (AUTO) 23.9 K/uL (4.3-11.0)
[2022-08-01 09:33] LABS: CALCIUM, SERUM 9.5 mg/dL (8.5-10.1); CREATININE 0.9 mg/dL (0.6-1.3); POTASSIUM 4.7 mmol/L (3.5-5.1)
[2022-08-01] MEDS: LEVOTHYROXINE SODIUM 50 MCG TABLET PO SCH (09:45)
[2022-08-01] MEDS: DEXAMETHASONE SOD PHOSPHATE 10 MG/ML VIAL IV SCH (09:46)
[2022-08-01] MEDS: POLYVINYL ALCOHOL 15 ML BOTTLE EACHEYE SCH ×4 (09:46→21:12)
[2022-08-01] MEDS: ZINC SULFATE 220 MG CAPSULE PO SCH (09:47)
[2022-08-01] MEDS: QUETIAPINE FUMARATE 25 MG TABLET NG SCH ×2 (09:47→18:07)
[2022-08-01] MEDS: CYANOCOBALAMIN 500 MCG TABLET PO SCH (09:47)
[2022-08-01] MEDS: MULTIVITAMINS,THERAGRAN 1 UDTAB TABLET PO SCH (09:47)
[2022-08-01] MEDS: ASCORBIC ACID 500 MG TABLET PO SCH (09:47)
[2022-08-01] MEDS: ASPIRIN 81 MG TAB.CHEW PO SCH (09:47)
[2022-08-01] MEDS: CALCIUM CARB 250MG /VITAMIN D 1 UDTAB PO SCH (09:47)
[2022-08-01] MEDS: CEFEPIME 2 GM in IV D5W 100 ML IV SCH ×2 (09:48→20:46)
[2022-08-01] MEDS: PROSOURCE / PROSTAT (PYXIS) 30 ML UDC PO SCH (09:51)
[2022-08-01] MEDS: DAKINS HALF STRENGTH (0.25%) 480 ML BOTTLE TOP SCH (09:51)
[2022-08-01] MEDS: acetaZOLAMIDE SODIUM 500 MG/VIAL VIAL IV SCH (09:51)
[2022-08-01] MEDS: ACETAMINOPHEN 650 MG/20.3 ML UDC NG PRN ×2 (11:44→20:47)
[2022-08-01] MEDS ORDERED: KEY,NONCONTROL,TO KEEP IN PYXI 1 EA MC ONE ×2 (12:34→14:44)
--- NOTE | 2022-08-01 14:50 | NUR ---
RN NOTE DID NOT USE NARCOTIC FOR THIS PATIENT.
[2022-08-01] MEDS: JEVITY 1.2 CAL 1,000 ML BOTTLE NG PRN (14:55)
[2022-08-01 16:00] VITALS: BP 143/87
[2022-08-01] MEDS: DOCUSATE SODIUM 250 MG CAPSULE PO SCH (18:07)
[2022-08-01] MEDS: DONEPEZIL 5 MG TABLET PO SCH (18:07)
--- NOTE | 2022-08-01 19:05 | NUR ---
RN CLOSING NOTE PT RESTING IN BED, ON O2 VIA NC @6L. TOLERATING WELL. NGT FEEDING JEVITY 1.2 RUNNING AT 65 MLS/HR. ASPIRATION PREC MAINTAINED. WITH IV ACCESS ON NARGIS AND MICHELLE MIDLINE. ALL SAFETY MEASURES IN MAINTAINED. BED LOCKED IN LOWEST POSITION. WILL ENDORSE CONTINUITY OF CARE TO ENTERPRISE APPLICATION DEVELOPER NURSE
[2022-08-01 20:00] VITALS: BP 130/69
[2022-08-01] MEDS: ATORVASTATIN 10 MG TABLET PO SCH (21:12)
[2022-08-02] MEDS: IPRATROPIUM/ALBUTEROL INHALER IH SCH ×4 (03:40→22:14)
[2022-08-02 04:00] VITALS: BP 148/75
[2022-08-02] MEDS: JEVITY 1.2 CAL 1,000 ML BOTTLE NG PRN (06:41)
--- NOTE | 2022-08-02 07:00 | NUR ---
RN CLOSING NOTE: OPENS EYES. AWAKE. ON O2 6LPM NC SATING AT 96 %. NG IN PLACE WITH JEVITY 1.2 AT 65 ML/HR. LEFT UPPER ARM AND RIGHT UPPER ARM MIDLINES PATENT. KEPT CLEAN AND REPOSITIONED. WOUND CARE PROVIDED ORDERED. BILATERAL SOFT HAND WRIST RESTRAINTS ON WITH SKIN CHECKS, CIRCULATION WITHIN PRATIBHA, NO SKIN BREAKDOWN. BILATERAL HALF SIDE RAILS UP X2. HOB ELEVATED SEMI FOWLERS POSITION. BED IS LOCKED, IN LOW POSITION, EXIT ALARM ON. CALL LIGHT IN REACH.
[2022-08-02 07:15] LABS: BASOPHILS % (AUTO) 0.1 % (0.0-2.0); EOSINOPHILS % (AUTO) 0.4 % (0.0-6.0); HEMATOCRIT 45 % (33-45); HEMOGLOBIN 14.8 g/dL (11.5-14.8); LYMPHOCYTES # (AUTO) 1.1 K/uL (0.8-4.8); LYMPHOCYTES % (AUTO) 4.6 % (20.0-44.0); MEAN CORPUSCULAR HGB CONC 33 g/dl (31.0-36.0); MEAN CORPUSCULAR VOLUME 89 fL (82-100); MONOCYTES % (AUTO) 8.6 % (2.0-12.0); NEUTROPHILS # (AUTO) 20.6 K/uL (1.8-8.9); NEUTROPHILS % (AUTO) 86.3 % (43.0-81.0); PLATELET COUNT (AUTO) 203 K/uL (150-450); RED BLOOD CELL COUNT(AUTO) 5.12 MIL/uL (4.0-5.2); WHITE BLOOD COUNT (AUTO) 23.9 K/uL (4.3-11.0)
[2022-08-02 07:29] LABS: CALCIUM, SERUM 9.4 mg/dL (8.5-10.1); CREATININE 0.8 mg/dL (0.6-1.3); POTASSIUM 4.8 mmol/L (3.5-5.1)
--- NOTE | 2022-08-02 07:30 | NUR ---
RN notes Received patient in bed. Not in distress with SpO2 95% with 6L oxygen given via NC. Bilateral upper arms midlines are dry, intact and patent .. No SOB noted. No lower limbs edema. Circulation is good with restraints use over bilateral wrists. Call bess is placed within reach. Bed is locked and placed in the lowest position. All safety measures have been implemented. Will continue monitor and care.
[2022-08-02 08:00] VITALS: BP 137/72
[2022-08-02] MEDS: ASCORBIC ACID 500 MG TABLET PO SCH (08:44)
[2022-08-02] MEDS: ZINC SULFATE 220 MG CAPSULE PO SCH (08:44)
[2022-08-02] MEDS: ASPIRIN 81 MG TAB.CHEW PO SCH (08:44)
[2022-08-02] MEDS: CYANOCOBALAMIN 500 MCG TABLET PO SCH (08:44)
[2022-08-02] MEDS: MULTIVITAMINS,THERAGRAN 1 UDTAB TABLET PO SCH (08:44)
[2022-08-02] MEDS: QUETIAPINE FUMARATE 25 MG TABLET NG SCH ×2 (08:45→17:38)
[2022-08-02] MEDS: DEXAMETHASONE SOD PHOSPHATE 10 MG/ML VIAL IV SCH (08:45)
[2022-08-02] MEDS: CALCIUM CARB 250MG /VITAMIN D 1 UDTAB PO SCH (08:45)
[2022-08-02] MEDS: POLYVINYL ALCOHOL 15 ML BOTTLE EACHEYE SCH ×4 (08:46→22:14)
[2022-08-02] MEDS: LEVOTHYROXINE SODIUM 50 MCG TABLET PO SCH (08:50)
[2022-08-02] MEDS: CEFEPIME 2 GM in IV D5W 100 ML IV SCH (08:50)
[2022-08-02] MEDS: acetaZOLAMIDE SODIUM 500 MG/VIAL VIAL IV SCH (08:52)
[2022-08-02] MEDS: PROSOURCE / PROSTAT (PYXIS) 30 ML UDC PO SCH (09:17)
[2022-08-02] MEDS: DAKINS HALF STRENGTH (0.25%) 480 ML BOTTLE TOP SCH (09:17)
--- NOTE | 2022-08-02 09:30 | NUR ---
RN notes Noted that patient is not in respiratory distress, RR 19/min. Reduced oxygen to 3L. Also noted that ABG has not been taken yet, contacted respiratory therapist for ABG.
[2022-08-02 09:51] LABS: ABG BASE EXCESS 1.4 mmol/L; ABG OXYGEN SATURATION 94.6 % (92.0-98.5); ABG PCO2 50.3 mmHg (35.0-45.0); AaDO2 119.3 mmHg; MetHb 0.2 % (0.0-1.5); O2Hb 93.5 % (94.0-97.0); SITE, ABG Right Radial; VENT MODE, BG 4 LPM NC
[2022-08-02] MEDS ORDERED: NA PHOS,M-B/NA PHOS,DI-BA 1 EA ENEMA RC ONE (13:30)
[2022-08-02] MEDS ORDERED: NA PHOS,M-B/NA PHOS,DI-BA 1 EA ENEMA RC PRN (13:30)
[2022-08-02] MEDS: POLYETHYLENE GLYCOL 3350 17 GM POWD.PACK NG SCH (13:36)
--- NOTE | 2022-08-02 14:30 | NUR ---
RN notes Fleet enema was administered as ordered with fair result.
[2022-08-02 15:56] LABS: BAND % (MANUAL) 4 % (0.0-5.0); LYMPHOCYTES % (MANUAL) 10 % (16-48); MONOCYTES % (MANUAL) 6 % (0-11.0); NEUTROPHILS % (MANUAL) 80 (42-76)
[2022-08-02 16:00] VITALS: BP 125/65
[2022-08-02] MEDS: DONEPEZIL 5 MG TABLET PO SCH (17:39)
[2022-08-02] MEDS: DOCUSATE SODIUM 250 MG CAPSULE PO SCH (17:39)
--- NOTE | 2022-08-02 18:39 | NUR ---
RN notes Patient is resting in bed. No SOB noted with Spo2 95% 2L oxygen given via NC. Good g-tube absorption in this shift. Satisfactory result of fleet enema. Circulation of bilateral hands is good. Call bess is placed within reach. Bed is locked and placed in the lowest position. All safety measures have been implemented. Will continue monitor and care.
--- NOTE | 2022-08-02 19:20 | NUR ---
RN MED SURGE OPEN NOTE: OPENS EYES. AWAKE. ON O2 6LPM NC SATING AT 94 %. NG IN PLACE WITH JEVITY 1.2 AT 65 ML/HR. LEFT UPPER ARM AND RIGHT UPPER ARM MIDLINES PATENT. KEPT CLEAN AND REPOSITIONED. WOUND CARE PROVIDED ORDERED. BILATERAL SOFT HAND WRIST RESTRAINTS ON WITH SKIN CHECKS, CIRCULATION WITHIN PRATIBHA, NO SKIN BREAKDOWN. BILATERAL HALF SIDE RAILS UP X2. HOB ELEVATED SEMI FOWLERS POSITION. BED IS LOCKED, IN LOW POSITION, EXIT ALARM ON. CALL LIGHT IN REACH.
[2022-08-02 20:00] VITALS: BP 130/80
[2022-08-02] MEDS: ATORVASTATIN 10 MG TABLET PO SCH (22:13)
[2022-08-02] MEDS: ACETAMINOPHEN 650 MG/20.3 ML UDC NG PRN (22:15)
[2022-08-03] MEDS: IPRATROPIUM/ALBUTEROL INHALER IH SCH ×4 (01:30→20:00)
[2022-08-03] MEDS: JEVITY 1.2 CAL 1,000 ML BOTTLE NG PRN ×2 (03:07→23:35)
[2022-08-03 04:00] VITALS: BP 138/88
--- NOTE | 2022-08-03 06:55 | NUR ---
RN MED SURGE CLOSING NOTE: OPENS EYES. AWAKE. ON O2 3LPM NC SATING AT 94 %. NG IN PLACE WITH JEVITY 1.2 AT 65 ML/HR. LEFT UPPER ARM AND RIGHT UPPER ARM MIDLINES PATENT. KEPT CLEAN AND REPOSITIONED, ASPIRATION PRECAUTIONS MAINTAINED. TYLENOL PRN GIVEN ORDERED FOR PAIN. BILATERAL SOFT HAND WRIST RESTRAINTS ON WITH SKIN CHECKS, CIRCULATION WITHIN NORMAL, NO SKIN BREAKDOWN. BILATERAL HALF SIDE RAILS UP X2. HOB ELEVATED SEMI FOWLERS POSITION. BED IS LOCKED, IN LOW POSITION, EXIT ALARM ON. CALL LIGHT IN REACH.
--- NOTE | 2022-08-03 07:20 | NUR ---
RN notes Received patient in bed. Not in distress with SpO2 95% with 3L oxygen given via NC. Bilateral upper arms midlines are dry, intact and patent. No SOB noted. No lower limbs edema. Circulation is good with restraints use over bilateral wrists. Call bess is placed within reach. Bed is locked and placed in the lowest position. All safety measures have been implemented. Will continue monitor and care.
[2022-08-03 07:52] LABS: EOSINOPHILS % (AUTO) 0.4 % (0.0-6.0); HEMATOCRIT 43 % (33-45); HEMOGLOBIN 13.8 g/dL (11.5-14.8); LYMPHOCYTES # (AUTO) 1.8 K/uL (0.8-4.8); LYMPHOCYTES % (AUTO) 6.4 % (20.0-44.0); MEAN CORPUSCULAR HGB CONC 32 g/dl (31.0-36.0); MEAN CORPUSCULAR VOLUME 88 fL (82-100); MONOCYTES # (AUTO) 2.4 K/uL (0.1-1.30); MONOCYTES % (AUTO) 8.3 % (2.0-12.0); NEUTROPHILS # (AUTO) 24.3 K/uL (1.8-8.9); NEUTROPHILS % (AUTO) 84.9 % (43.0-81.0); PLATELET COUNT (AUTO) 225 K/uL (150-450); WHITE BLOOD COUNT (AUTO) 28.6 K/uL (4.3-11.0)
[2022-08-03 08:00] VITALS: BP 105/57
[2022-08-03 08:00] LABS: CALCIUM, SERUM 9.6 mg/dL (8.5-10.1); CARBON DIOXIDE 29 mmol/L (21-32); CHLORIDE 102 mmol/L (98-107); CREATININE 0.8 mg/dL (0.6-1.3); GLUCOSE 142 mg/dL (74-106); POTASSIUM 4.3 mmol/L (3.5-5.1); SODIUM SERUM 139 mmol/L (136-145); UREA NITROGEN, BLOOD 43 mg/dL (7-18)
[2022-08-03] MEDS: LEVOTHYROXINE SODIUM 50 MCG TABLET PO SCH (08:15)
[2022-08-03] MEDS: ZINC SULFATE 220 MG CAPSULE PO SCH (08:15)
[2022-08-03] MEDS: MULTIVITAMINS,THERAGRAN 1 UDTAB TABLET PO SCH (08:15)
[2022-08-03] MEDS: CYANOCOBALAMIN 500 MCG TABLET PO SCH (08:16)
[2022-08-03] MEDS: QUETIAPINE FUMARATE 25 MG TABLET NG SCH ×2 (08:16→17:29)
[2022-08-03] MEDS: POLYETHYLENE GLYCOL 3350 17 GM POWD.PACK NG SCH (08:16)
[2022-08-03] MEDS: ASPIRIN 81 MG TAB.CHEW PO SCH (08:16)
[2022-08-03] MEDS: CALCIUM CARB 250MG /VITAMIN D 1 UDTAB PO SCH (08:16)
[2022-08-03] MEDS: ASCORBIC ACID 500 MG TABLET PO SCH (08:17)
[2022-08-03] MEDS: DAKINS HALF STRENGTH (0.25%) 480 ML BOTTLE TOP SCH (08:17)
[2022-08-03] MEDS: POLYVINYL ALCOHOL 15 ML BOTTLE EACHEYE SCH ×4 (08:17→22:44)
[2022-08-03] MEDS: PROSOURCE / PROSTAT (PYXIS) 30 ML UDC PO SCH (09:00)
--- NOTE | 2022-08-03 10:00 | NUR ---
RN notes Dr. Jacobson came and assess patient. Reported patient's latest condition with her frequent coughing(by her saliva) and delayed swallowing. Also reported patient's skin condition. Dr Jacobson decided to stop miralax. Done as ordered. She also said that we could discontinue precaution for COVID-19 for patient.
[2022-08-03] MEDS ORDERED: MEROPENEM 1 G in IV NS 0.9% 100 ML IV SCH (11:00)
--- NOTE | 2022-08-03 11:00 | NUR ---
Rn notes Reduced oxygen to 2L via NC. Spo2 96%.
[2022-08-03] MEDS ORDERED: VANCOMYCIN 1.25 GM in IV D5W 250 ML IV SCH (12:00)
[2022-08-03 16:00] VITALS: BP 105/59
[2022-08-03] MEDS: DONEPEZIL 5 MG TABLET PO SCH (17:29)
[2022-08-03] MEDS: DOCUSATE SODIUM 250 MG CAPSULE PO SCH (17:29)
--- NOTE | 2022-08-03 19:18 | NUR ---
RN notes Patient is resting in bed without signs of distress. SpO2 95% with 2L oxygen given via NC. Bilateral upper arms midlines are dry, intact and patent. No SOB noted. Circulation is good with restraints use over bilateral wrists. Call bess is placed within reach. Bed is locked and placed in the lowest position. All safety measures have been implemented. Will continue monitor and care.
--- NOTE | 2022-08-03 19:50 | NUR ---
MS RN OPENING NOTE PATIENT IN BED, OPENS EYES, YELLS WHEN TOUCHED. PT STABLE ON 2 LPM OF O2 VIA NASAL CANNULA, NO S/S OF DISTRESS OR SOB NOTED, BREATHING EVEN AND UNLABORED, SPO2: 96%. PT ON BILATERAL WRIST RESTRAINTS D/T PULLING OF LINE. NGT INTACT AND INFUSING JEVITY AND 65 ML/HR. PUREWICK IN PLACE AND DRAINING LC URINE. SAFETY MEASURES IN PLACE: CALL LIGHT WITHIN REACH, SIDE RAILS UP X 3, BED LOCKED IN LOWEST POSITION, HOB ELEVATED, BED ALARM ON. WILL CONTINUE TO MONITOR PATIENT
[2022-08-03 20:25] LABS: EOSINOPHILS % (MANUAL) 2 % (0-4); LYMPHOCYTES % (MANUAL) 7 % (16-48); MONOCYTES % (MANUAL) 5 % (0-11.0); NEUTROPHILS % (MANUAL) 86 (42-76)
[2022-08-03 20:31] VITALS: BP 104/70
[2022-08-03] MEDS: ATORVASTATIN 10 MG TABLET PO SCH (22:43)
[2022-08-04] MEDS: IPRATROPIUM/ALBUTEROL INHALER IH SCH ×2 (01:44→19:30)
[2022-08-04 04:00] VITALS: BP 100/65
[2022-08-04 07:16] LABS: BASOPHILS # (AUTO) 0.1 K/uL (0.0-0.2); BASOPHILS % (AUTO) 0.3 % (0.0-2.0); EOSINOPHILS % (AUTO) 1.5 % (0.0-6.0); HEMATOCRIT 44 % (33-45); HEMOGLOBIN 14.1 g/dL (11.5-14.8); LYMPHOCYTES # (AUTO) 2.2 K/uL (0.8-4.8); LYMPHOCYTES % (AUTO) 8.8 % (20.0-44.0); MEAN CORPUSCULAR HGB CONC 32 g/dl (31.0-36.0); MEAN CORPUSCULAR VOLUME 88 fL (82-100); MONOCYTES # (AUTO) 2.2 K/uL (0.1-1.30); MONOCYTES % (AUTO) 8.9 % (2.0-12.0); NEUTROPHILS # (AUTO) 19.8 K/uL (1.8-8.9); NEUTROPHILS % (AUTO) 80.5 % (43.0-81.0); PLATELET COUNT (AUTO) 204 K/uL (150-450); RED BLOOD CELL COUNT(AUTO) 4.97 MIL/uL (4.0-5.2); WHITE BLOOD COUNT (AUTO) 24.5 K/uL (4.3-11.0)
[2022-08-04 07:47] LABS: CALCIUM, SERUM 9.7 mg/dL (8.5-10.1); CREATININE 0.7 mg/dL (0.6-1.3); POTASSIUM 4.5 mmol/L (3.5-5.1)
[2022-08-04 08:00] VITALS: BP 121/99
[2022-08-04 08:58] LABS: ABG PO2 75.6 mmHg (75.0-100.0); AaDO2 79.2 mmHg; COHb 1.2 % (0.5-1.5); MetHb 0.2 % (0.0-1.5); O2Hb 93.7 % (94.0-97.0); SITE, ABG Right Radial; VENT MODE, BG 2LNC
--- NOTE | 2022-08-04 09:07 | NUR ---
RN NOTE NOTIFIED DR MO OF ABG RESULTS. AWARE AT THIS TIME.
[2022-08-04] MEDS: DAKINS HALF STRENGTH (0.25%) 480 ML BOTTLE TOP SCH (09:09)
[2022-08-04] MEDS: ASCORBIC ACID 500 MG TABLET PO SCH (09:26)
[2022-08-04] MEDS: PROSOURCE / PROSTAT (PYXIS) 30 ML UDC PO SCH (09:26)
[2022-08-04] MEDS: CALCIUM CARB 250MG /VITAMIN D 1 UDTAB PO SCH (09:26)
[2022-08-04] MEDS: CYANOCOBALAMIN 500 MCG TABLET PO SCH (09:26)
[2022-08-04] MEDS: POLYVINYL ALCOHOL 15 ML BOTTLE EACHEYE SCH ×4 (09:27→22:47)
[2022-08-04] MEDS: QUETIAPINE FUMARATE 25 MG TABLET NG SCH ×2 (09:27→17:47)
[2022-08-04] MEDS: MULTIVITAMINS,THERAGRAN 1 UDTAB TABLET PO SCH (09:27)
[2022-08-04] MEDS: LEVOTHYROXINE SODIUM 50 MCG TABLET PO SCH (09:27)
[2022-08-04] MEDS: ASPIRIN 81 MG TAB.CHEW PO SCH (09:27)
[2022-08-04] MEDS: ZINC SULFATE 220 MG CAPSULE PO SCH (09:27)
--- NOTE | 2022-08-04 14:25 | NUR ---
RN NOTE PER SUMAN FISCHER, SPOKE TO DAUGHTER AND IS IN AGREEMENT: PATIENT IS DNR/ DNI.
[2022-08-04 16:00] VITALS: BP 144/75
[2022-08-04] MEDS: DOCUSATE SODIUM 250 MG CAPSULE PO SCH (17:46)
[2022-08-04] MEDS: DONEPEZIL 5 MG TABLET PO SCH (17:47)
--- NOTE | 2022-08-04 19:20 | NUR ---
RN NOTES RECEIVED REPORT FROM MORNING RN. PATIENT ON OXYGEN INHALATION AT 2 LPM SATING 93%. WITH NGT PATENT RUNNING JEVITY 1.2@ 65CC/HR NO GASTRIC RESIDUAL NOTED AT THIS TIME. WITH BILATERAL WRIST RESTRAINTS IN PLACE CIRCULATION CHECK. ALL SAFETY MEASURES IN PLACE AT ALL TIMES. HOB ELEVATED. CALL LIGHT WITHIN REACH. EILL CLOSELY MONITOR THE PATIENT
--- NOTE | 2022-08-04 19:25 | NUR ---
RN MED SURGE CLOSING NOTE PATIENT IN BED ON O2 2 LPM NC SATING AT 94 %. NG IN PLACE WITH JEVITY 1.2 AT 65 ML/HR. LEFT UPPER ARM AND RIGHT UPPER ARM MIDLINES PATENT. KEPT CLEAN AND REPOSITIONED, ASPIRATION PRECAUTIONS MAINTAINED. BILATERAL SOFT HAND WRIST RESTRAINTS ON WITH SKIN CHECKS, CIRCULATION WITHIN NORMAL, NO SKIN BREAKDOWN. BILATERAL HALF SIDE RAILS UP X2. HOB ELEVATED SEMI FOWLERS POSITION. BED IS LOCKED, IN LOW POSITION, EXIT ALARM ON. CALL LIGHT IN REACH. WILL ENDORSE CONTINUITY OF CARE TO BAKER BREAD
[2022-08-04 20:00] VITALS: BP 144/78
[2022-08-04] MEDS: ATORVASTATIN 10 MG TABLET PO SCH (22:41)
--- NOTE | 2022-08-05 00:20 | NUR ---
RN NOTES SUCTION PATIENT WITH THICK SECRETION.
[2022-08-05] MEDS: IPRATROPIUM/ALBUTEROL INHALER IH SCH ×2 (01:30→19:30)
[2022-08-05 04:00] VITALS: BP 114/73
[2022-08-05] MEDS: JEVITY 1.2 CAL 1,000 ML BOTTLE NG PRN (05:40)
[2022-08-05 06:24] LABS: BASOPHILS % (AUTO) 0.1 % (0.0-2.0); EOSINOPHILS % (AUTO) 0.3 % (0.0-6.0); HEMATOCRIT 42 % (33-45); HEMOGLOBIN 13.7 g/dL (11.5-14.8); LYMPHOCYTES # (AUTO) 0.7 K/uL (0.8-4.8); LYMPHOCYTES % (AUTO) 2.3 % (20.0-44.0); MEAN CORPUSCULAR HGB CONC 32 g/dl (31.0-36.0); MEAN CORPUSCULAR VOLUME 89 fL (82-100); MONOCYTES # (AUTO) 2.6 K/uL (0.1-1.30); MONOCYTES % (AUTO) 8.1 % (2.0-12.0); NEUTROPHILS # (AUTO) 28.7 K/uL (1.8-8.9); NEUTROPHILS % (AUTO) 89.2 % (43.0-81.0); PLATELET COUNT (AUTO) 184 K/uL (150-450); RED BLOOD CELL COUNT(AUTO) 4.79 MIL/uL (4.0-5.2)
[2022-08-05 06:43] LABS: WHITE BLOOD COUNT (AUTO) 32.1 K/uL (4.3-11.0)
[2022-08-05 06:53] LABS: CALCIUM, SERUM 9.6 mg/dL (8.5-10.1); CREATININE 0.9 mg/dL (0.6-1.3); POTASSIUM 4.8 mmol/L (3.5-5.1)
--- NOTE | 2022-08-05 06:58 | NUR ---
RN NOTES LAB CALLED [facility] 32.1 CLARA INFORMED.
--- NOTE | 2022-08-05 07:13 | NUR ---
RN NOTES PATIENT REMAINS STABLE NO SIGNIFICANT CHANGES. PATIENT STILL ON GT TOLERATING WELL NO GASTRIC RESIDUAL NOTED. FREQUENT VISUAL MONITORING RENDERED. MOUTH SUCTIONING DONE. WILL ENDORSED TO MORNING SHIFT FOR PETER
[2022-08-05 08:00] VITALS: BP 144/83
[2022-08-05] MEDS: POLYVINYL ALCOHOL 15 ML BOTTLE EACHEYE SCH ×4 (08:52→21:12)
[2022-08-05] MEDS: DAKINS HALF STRENGTH (0.25%) 480 ML BOTTLE TOP SCH (08:55)
[2022-08-05] MEDS: PROSOURCE / PROSTAT (PYXIS) 30 ML UDC PO SCH (09:15)
[2022-08-05] MEDS: ZINC SULFATE 220 MG CAPSULE PO SCH (09:16)
[2022-08-05] MEDS: MULTIVITAMINS,THERAGRAN 1 UDTAB TABLET PO SCH (09:16)
[2022-08-05] MEDS: ASCORBIC ACID 500 MG TABLET PO SCH (09:16)
[2022-08-05] MEDS: ASPIRIN 81 MG TAB.CHEW PO SCH (09:16)
[2022-08-05] MEDS: QUETIAPINE FUMARATE 25 MG TABLET NG SCH ×2 (09:16→17:00)
[2022-08-05] MEDS: CALCIUM CARB 250MG /VITAMIN D 1 UDTAB PO SCH (09:16)
[2022-08-05] MEDS: LEVOTHYROXINE SODIUM 50 MCG TABLET PO SCH (09:16)
[2022-08-05] MEDS: CYANOCOBALAMIN 500 MCG TABLET PO SCH (09:16)
[2022-08-05 12:42] LABS: LYMPHOCYTES % (MANUAL) 3 % (16-48); MONOCYTES % (MANUAL) 11 % (0-11.0); MYELOCYTES % 2 % (0-0); NEUTROPHILS % (MANUAL) 84 (42-76)
[2022-08-05 16:00] VITALS: BP 104/74
[2022-08-05] MEDS: DOCUSATE SODIUM 250 MG CAPSULE PO SCH (18:00)
[2022-08-05] MEDS: DONEPEZIL 5 MG TABLET PO SCH (18:00)
--- NOTE | 2022-08-05 18:20 | NUR ---
RN NOTE PATIENT REMOVED NG TUBE. PLACED NEW NG TUBE, WAITING FOR RADIOLOGY RESULTS TO CONFIRM PLACEMENT. RADIOLOGY RESULTS WILL BE REPORTED IN 45 MINUTES. PLEASE CALL [phone]. NOTIFIED.
--- NOTE | 2022-08-05 18:52 | NUR ---
RN NOTE MEDICATIONS NOT ADMINISTERED AT THIS TIME, AWAITING NG TUBE PLACE FROM RADIOLOGY. MD IS AWARE. PLEASE CALL [phone] FOR CONFIRMATION. WILL ENDORSE TO [facility] OPERATOR NURSE.
--- NOTE | 2022-08-05 19:30 | NUR ---
RN OPENING NOTE RECEIVED PT IN BED, AWAKE, A/O X 0. DOES NOT RESPOND TO QUESTIONS ANYMORE, JUST STARES BACK. CURRENTLY ON OXYGEN THERAPY AT 4 LPM SATING @ 94%. WITH NGT AWAITING RESULT OF IMAGING FOR PLACEMENT CHECK. NGT FEEDING ON HOLD FOR NOW. PT HAS BILATERAL SOFT WRIST RESTRAINTS, NO CIRCULATION ISSUES NOTED. ALL SAFETY MEASURES IN PLACE: BED LOCKED IN LOW POSITION, HOB ELEVATED. CALL LIGHT WITHIN REACH. WILL CLOSELY MONITOR THE PATIENT.
--- NOTE | 2022-08-05 19:45 | NUR ---
RN NOTE CONFIRMED PROPER PLACEMENT OF NGT PER RECENT IMAGING. RESUMED NGT FEEDING ORDERED.
[2022-08-05 20:00] VITALS: BP 147/91
[2022-08-05] MEDS: ATORVASTATIN 10 MG TABLET PO SCH (21:13)
[2022-08-06] VITALS: BP 110/58
[2022-08-06] MEDS: IPRATROPIUM/ALBUTEROL INHALER IH SCH (01:57)
[2022-08-06 02:00] VITALS: BP 60/33
[2022-08-06 02:30] VITALS: BP 61/30
--- NOTE | 2022-08-06 02:30 | NUR ---
RN NOTES PT NOTED TO BE IN AGONAL BREATHING, BP CHECKED SBP <70s, NOTIFIED ONCALL MD (CLARA,GEOVANNA) ORDER GIVEN 500ML NS BOLUS. WILL CARRY OUT ORDER.
--- NOTE | 2022-08-06 02:35 | NUR ---
RN NOTE A BOLUS OF 50 CC OF NS GIVEN PER MD ORDER. PT'S BP SLOWLY GOING DOWN, O2 SAT IN THE 70s. AGONAL BREATHING NOTED.
[2022-08-06] MEDS ORDERED: IV NS 0.9% 500 ML IV ONE (03:00)
--- NOTE | 2022-08-06 03:10 | NUR ---
RN NOTE PT AT O3:05 AM. CALLED DAUGHTER (CHON HERNANDEZ) AND INFORMED HER ABOUT PT'S PASSING.
--- NOTE | 2022-08-06 03:15 | NUR ---
RN NOTE INFORMED THE DOCTOR AND ADMITTING OFFICE ABOUT PT'S PASSING.
--- NOTE | 2022-08-06 03:30 | NUR ---
RN NOTE CALLED [facility] AND SPOKE WITH TERESO MURPHY. CASE# [id number]
== END 2022-08-06 04:46 | DRG 981 ==
LOC: ER 16:14 → TELE1 20:20 → MEDSG1 07-25 08:37
PROVIDERS: ADMIT Nurse Practitioner Acute Care; ATTEND Nurse Practitioner Acute Care
PROC: XW033E5 Introduction of Remdesivir Anti-infective into Peripheral Vein, Percutaneous Approach, New Technology Group 5 (ICD-10-PCS; 2022-07-24)
PROC: 02HV33Z Insertion of Infusion Device into Superior Vena Cava, Percutaneous Approach (ICD-10-PCS; 2022-07-25)
PROC: B548ZZA Ultrasonography of Superior Vena Cava, Guidance (ICD-10-PCS; 2022-07-25)
PROC: 0KBS0ZZ Excision of Right Lower Leg Muscle, Open Approach (ICD-10-PCS; principal; 2022-07-26)
PROC: 05H933Z Insertion of Infusion Device into Right Brachial Vein, Percutaneous Approach (ICD-10-PCS; 2022-07-26)
DX: U07.1 COVID-19 (principal); G93.41 Metabolic encephalopathy; I21.A1 Myocardial infarction type 2; J12.82 Pneumonia due to coronavirus disease 2019; L89.514 Pressure ulcer of right ankle, stage 4; J96.01 Acute respiratory failure with hypoxia; J18.9 Pneumonia, unspecified organism; E44.0 Moderate protein-calorie malnutrition; D68.59 Other primary thrombophilia; M84.421A Pathological fracture, right humerus, initial encounter for fracture; E87.4 Mixed disorder of acid-base balance; R79.89 Other specified abnormal findings of blood chemistry; J44.9 Chronic obstructive pulmonary disease, unspecified; I10 Essential (primary) hypertension; Z85.828 Personal history of other malignant neoplasm of skin; Z66 Do not resuscitate; M19.90 Unspecified osteoarthritis, unspecified site; Z88.2 Allergy status to sulfonamides; Z79.83 Long term (current) use of bisphosphonates; Z79.82 Long term (current) use of aspirin; Z79.899 Other long term (current) drug therapy; Z79.51 Long term (current) use of inhaled steroids; Z79.890 Hormone replacement therapy; S91.011A Laceration without foreign body, right ankle, initial encounter; X58.XXXA Exposure to other specified factors, initial encounter; Y92.9 Unspecified place or not applicable; F03.90 Unspecified dementia, unspecified severity, without behavioral disturbance, psychotic disturbance, mood disturbance, and anxiety; Z74.09 Other reduced mobility; M81.0 Age-related osteoporosis without current pathological fracture; E83.39 Other disorders of phosphorus metabolism; E78.5 Hyperlipidemia, unspecified; E83.51 Hypocalcemia; E88.09 Other disorders of plasma-protein metabolism, not elsewhere classified; I12.9 Hypertensive chronic kidney disease with stage 1 through stage 4 chronic kidney disease, or unspecified chronic kidney disease; N18.9 Chronic kidney disease, unspecified; F09 Unspecified mental disorder due to known physiological condition; R13.10 Dysphagia, unspecified; C44.90 Unspecified malignant neoplasm of skin, unspecified; F32.A Depression, unspecified; E03.9 Hypothyroidism, unspecified; Y95 Nosocomial condition; E87.5 Hyperkalemia; Z93.1 Gastrostomy status; K59.00 Constipation, unspecified
CPT/HCPCS: 36410; 36415; 36600; 71045-TC; 71250-TC; 74018; 80048-TC; 80053-TC; 80076-TC; 81001; 82728-TC; 83605-TC; 83735-TC; 84100-TC; 84484-TC; 85025-TC; 85378-TC; 85610-TC; 85730-TC; 86140-TC; 86803; 87040-TC; 87086-TC; 87806; 92526; 92611-TC; 93970-TC; 94799-TC; A4216; A4629; A6253; A6403; A9563; C9803; G0378; J0692; J0696; J1100; J1120; J1644; J2185; J3490; J7030; J7040; J7050; J7060